=== PATIENT | male | born 1980 | race Caucasian/White ===

== ENCOUNTER 2019-10-29 13:14 | Emergency (ER) | payer SELFPAY ==
--- NOTE | 2019-10-29 13:25 | PDOC ---
Rapid Medical Evaluation Time Seen by Provider: 10/29/19 13:22 Medical Evaluation: Allergies Allergy/AdvReac Type Severity Reaction Status Date / Time No Known Allergies Allergy Verified 11/05/11 12:59 10/29/19 13:22 CC: punched a glass window not with lac to rt 5th digit, utd tdap, no diabetes Exam : noted complex lac to lat/palmar saspect of rt 5 th digit. normal 2 pt discrimination. full ext/flex tendon strength and movement Plan: xray Discharge Disposition - Diagnosis Finger laceration - Referrals - Patient Instructions - Post Discharge Activity
[2019-10-29 13:28] VITALS: BP 125/57; PULSE 88; TEMP 98.2; BMI 25.0
--- NOTE | 2019-10-29 14:21 | PDOC ---
History of Present Illness - General History Source: Patient - History of Present Illness Occurred: reports: just prior to arrival Upper Extremity Pain Location: right: 5th finger <Elaine Mao - Last Filed: 10/29/19 14:39> <Jono Messina - Last Filed: 10/29/19 14:52> - General Chief Complaint: Laceration Stated Complaint: CUT FINGER Time Seen by Provider: 10/29/19 13:22 Past History - Medical History COPD: No - Immunization History Td Vaccination: Yes Immunization Up to Date: Yes - Psycho-Social/Smoking History Smoking Status: Yes Smoking History: Never smoked Number of Cigarettes Smoked Daily: 10 - Substance Abuse Hx (Audit-C & DAST Scrn) How often the patient has a drink containing alcohol: Monthly or less Score: In Men: 4 or > Positive; In Women: 3 or > Positive: 1 Screen Result (Pos requires Nsg. Audit-10AR): Negative In the last yr the pt used illegal drug/Rx for NonMed reason: No Score: Yes response is considered Positive: 0 Screen Result (Positive result requires Nsg. DAST-10): Negative <Elaine Mao - Last Filed: 10/29/19 14:39> <Jono Messina - Last Filed: 10/29/19 14:52> - Medical History Allergies/Adverse Reactions: Allergies Allergy/AdvReac Type Severity Reaction Status Date / Time No Known Allergies Allergy Verified 10/29/19 13:26 Home Medications: Ambulatory Orders No Home Medications 0 dose .ROUTE UTDICT 11/05/11 Cephalexin [Keflex] 500 mg PO Q6H #28 capsule 10/29/19 Review of Systems - Review of Systems Constitutional: No: Fever Musculoskeletal: No: Joint Swelling Integumentary: No: Erythema <Elaine Mao - Last Filed: 10/29/19 14:39> *Physical Exam - Vital Signs Last Vital Signs Temp Pulse Resp BP Pulse Ox 98.2 F 88 18 125/57 L 98 10/29/19 13:14 10/29/19 13:14 10/29/19 13:14 10/29/19 13:14 10/29/19 13:14 - Physical Exam General Appearance: Yes: Appropriately Dressed. No: Apparent Distress HEENT: positive: Normal Voice Extremity: positive: Other (~2 cm vertical laceration alongside R 5th finger w/ sig bleeding, active and passive ROM intact, sensation intact, FROMI) Integumentary: positive: Dry, Warm Neurologic: positive: Fully Oriented, Alert, Normal Mood/Affect <Foster Mao Last Filed: 10/29/19 14:39> - Vital Signs Last Vital Signs Temp Pulse Resp BP Pulse Ox 98.2 F 88 18 125/57 L 98 10/29/19 13:14 10/29/19 13:14 10/29/19 13:14 10/29/19 13:14 10/29/19 13:14 <Jono Messina - Last Filed: 10/29/19 14:52> Procedures - Laceration/Wound Repair Right 5th digit Wound Length: 2.6 to 5.0 cm Wound Explored: clean, no foreign body present Wound's Depth, Shape: superficial, irregular Irrigated w/ Saline: Yes Betadine Prep: Yes Anesthesia: 1% Lidocaine Amount of Anesthetic (ccs): 3 Wound Debrided: minimal Wound Repaired With: Sutures Suture Size/Type: 4:0, 3:0, nylon Number of Sutures: 9 (3:0 x2 with one figure 8, 4:0 x7) Layer Closure: No Sterile Dressing Applied: No Splint Applied: Yes Sling Applied: No <Jono Messina - Last Filed: 10/29/19 14:52> Medical Decision Making - Medical Decision Making 10/29/19 13:56 39 yo M, no sig hx, tetanus UTD, here w/ finger laceration after "punching a glass" today per pt. No fb sensation or sensory changes see exam Finger laceraion No e/o tendon injury XR neg for fb (glass) Tetanus UTD Lac repair by 10/29/19 14:42 XR neg for FB. Pt s/p suture repair by ED resident w/ Dr Valle present. Splint/lucas tape was placed on pt. Per Dr Valle, given depth of wound, pt to go home w/ abx, wound check in 2 days and hand f/u <Elaine Mao Filed: 10/29/19 14:39> Discharge - Discharge Information Problems reviewed: Yes <Elaine Mao - Last Filed: 10/29/19 14:39> <Jono Messina - Last Filed: 10/29/19 14:52> - Discharge Information Clinical Impression/Diagnosis: Finger laceration Qualifiers: Encounter type: initial encounter Finger: little finger Damage to nail status: without damage Foreign body presence: without foreign body Laterality: right Qualified Code(s): S61.216A - Laceration without foreign body of right little finger without damage to nail, initial encounter Condition: Improved Disposition: HOME - Additional Discharge Information Prescriptions: Cephalexin [Keflex] 500 mg PO Q6H #28 capsule - Patient Discharge Instructions Patient Printed Discharge Instructions: DI for Laceration Repair Additional Instructions: Keep dressing in place for at least 24 hours after which one can be opened to air. You can gently cleaned wound with mild soap and water after 24 hours to prevent crusting over the suture knots. You can also apply an antibiotic ointment twice a day until sutures are removed in 7 days Return for wound check in 2 days in ED Please take antibiotics as directed Please also call orthopedics for follow up Your xray showed no foreign body
== END 2019-10-29 15:13 | disposition home or self-care (01) ==
LOC: JERFT 13:14
PROC: 0HQFXZZ Repair Right Hand Skin, External Approach (ICD-10-PCS; principal; 2019-10-29)
DX: S61.216A Laceration without foreign body of right little finger without damage to nail, initial encounter (principal)
CPT/HCPCS: 73140-TC-RT-FY; 99284-25

== ENCOUNTER 2019-12-16 11:01 | Emergency (ER) | payer OTHER ==
[2019-12-16 11:12] VITALS: BP 134/75; PULSE 97; TEMP 98.4; BMI 26.6
[2019-12-16 11:58] LABS: BASO % 0.1 % (0-2.0); EOS % 0.1 % (0-4.5); HEMATOCRIT 45.5 % (35.4-49); HEMOGLOBIN 15.4 GM/dL (11.7-16.9); LYMPH % 6.4 % (8-40); MCH 29.9 pg (25.7-33.7); MCHC 33.8 g/dl (32.0-35.9); MEAN CELL VOLUME 88.6 fl (80-96); MEAN PLT VOLUME 7.3 fl (7.5-11.1); NEUT % 83.4 % (42.8-82.8); PLATELET COUNT 313 K/MM3 (134-434); RBC 5.13 M/mm3 (4.00-5.60); RDW 12.7 % (11.9-15.9); WHITE BLOOD COUNT 17.7 K/mm3 (4.0-10.0)
[2019-12-16] MEDS ORDERED: POLYETHYLENE GLYCOL 3350 119 GM BTL PO ONE (12:03)
[2019-12-16] MEDS ORDERED: MAG HYDROX/AL HYDROX/SIMETH 30 ML UNIT-DOSE CUP PO ONE (12:03)
[2019-12-16] MEDS ORDERED: MAG HYDROX/AL HYDROX/SIMETH 30 ML UNIT-DOSE CUP ONE (12:13)
[2019-12-16] MEDS ORDERED: LACTULOSE 20 GM/30 ML UDC (FOR ORAL USE ONLY) PO ONE (12:16)
--- NOTE | 2019-12-16 12:17 | PDOC ---
History of Present Illness - General History Source: Patient Exam Limitations: Clinical Condition - History of Present Illness Initial Comments: 12/16/19 12:12 Patient with no significant past medical history present with complaint of 3-day history of constipation and intermittent lower abdominal pain which he described as cramping pain. Patient reported last bowel movement 3 days ago. Patient reported feeling nausea but denies vomiting. Denies fever, chills, shortness of breath. Patient has not taken anything for symptoms. Denies any other symptoms Is this a multiple visit Asthma Patient?: No Timing/Duration: other (3 days) <AntionetteTemo - Last Filed: 12/16/19 16:18> <Humberto Proctor - Last Filed: 12/16/19 18:55> - General Chief Complaint: Pain Stated Complaint: STOMACH PAIN (CONSTIPATION) Time Seen by Provider: 12/16/19 11:17 Past History - Medical History COPD: No - Immunization History Td Vaccination: Yes Immunization Up to Date: Yes - Psycho-Social/Smoking History Smoking Status: Yes Smoking History: Current some day smoker Have you smoked in the past 12 months: Yes Number of Cigarettes Smoked Daily: 2 Cigars Per Day: 0 Information on smoking cessation initiated: No - Substance Abuse Hx (Audit-C & DAST Scrn) How often the patient has a drink containing alcohol: Never Score: In Men: 4 or > Positive; In Women: 3 or > Positive: 0 Screen Result (Pos requires Nsg. Audit-10AR): Negative In the last yr the pt used illegal drug/Rx for NonMed reason: No Score: Yes response is considered Positive: 0 Screen Result (Positive result requires Nsg. DAST-10): Negative <Temo Adan - Last Filed: 12/16/19 16:18> <Humberto Proctor - Last Filed: 12/16/19 18:55> - Medical History Allergies/Adverse Reactions: Allergies Allergy/AdvReac Type Severity Reaction Status Date / Time No Known Allergies Allergy Verified 12/16/19 11:12 Home Medications: Ambulatory Orders Polyethylene Glycol 3350 [Miralax (For Daily Use) -] 17 gm PO DAILY #1 bottle 12/16/19 Review of Systems - Review of Systems Able to Perform ROS?: Yes Is the patient limited Kinyarwanda proficient: No Constitutional: No: Chills, Fever, Malaise HEENTM: No: Symptoms Reported, See HPI, Eye Pain, Blurred Vision, Tearing, Recent change in vision, Double Vision, Cataracts, Ear Pain, Ocular Prothesis, Ear Discharge, Nose Pain, Nose Congestion, Tinnitus, Nose Bleeding, Hearing Loss, Throat Pain, Throat Swelling, Mouth Pain, Dental Problems, Difficulty Swallowing, Mouth Swelling, Other Respiratory: No: Symptoms reported, See HPI, Cough, Orthopnea, Shortness of Breath, SOB with Exertion, SOB at Rest, Stridor, Wheezing, Productive cough, Hemoptysis, Other Cardiac (ROS): No: Symptoms Reported, See HPI, Chest Pain, Edema, Irregular Heart Rate, Lightheadedness, Palpitations, Syncope, Chest Tightness, Other ABD/GI: Yes: Symptoms Reported, See HPI, Constipated, Nausea, Abdominal cramping (lower abdomen). No: Abdominal Distended, Abd. Pain w/ defecation, Blood Streaked Bowels, Diarrhea, Difficulty Swallowing, Poor Appetite, Rectal Bleeding, Vomiting, Indigestion : No: Symptoms Reported, Burning, Dysuria, Discharge, Frequency, Flank Pain, Urgency Integumentary: No: Symptoms Reported Neurological: No: Symptoms reported, Headache All Other Systems: Reviewed and Negative <Temo Adan - Last Filed: 12/16/19 16:18> *Physical Exam - Vital Signs Last Vital Signs Temp Pulse Resp BP Pulse Ox 98.4 F 97 H 18 134/75 100 12/16/19 11:09 12/16/19 11:09 12/16/19 11:09 12/16/19 11:09 12/16/19 11:09 - Physical Exam 12/16/19 12:16 GENERAL: Well developed, well nourished. Awake and alert. No acute distress. HEENT: Normocephalic, atraumatic. PERRLA, EOMI. No conjunctival pallor. Sclera are non-icteric. Moist mucous membranes. Oropharynx is clear. NECK: Supple. Full ROM. CARDIOVASCULAR: Regular rate and rhythm. No murmurs, rubs, or gallops. PULMONARY: No evidence of respiratory distress. Lungs clear to auscultation bilaterally. No wheezing, rales or rhonchi. ABDOMINAL: Soft. Mild suprapubic tenderness. Non-distended. No rebound or guarding. No organomegaly. Diffuse decreased bowel sounds. MUSCULOSKELETAL Normal range of motion at all joints. SKIN: Warm and dry. Normal capillary refill. No rashes. No jaundice. NEUROLOGICAL: Alert, awake, appropriate. Gait is normal without ataxia. PSYCHIATRIC: Cooperative. Good eye contact. Appropriate mood General Appearance: Yes: Nourished, Appropriately Dressed. No: Apparent Distress <Temo Adan - Last Filed: 12/16/19 16:18> - Vital Signs Last Vital Signs Temp Pulse Resp BP Pulse Ox 98.4 F 97 H 18 134/75 100 12/16/19 11:09 12/16/19 11:09 12/16/19 11:09 12/16/19 11:09 12/16/19 11:09 <Esthela,Humberto - Last Filed: 12/16/19 18:55> ED Treatment Course - LABORATORY CBC & Chemistry Diagram: 12/16/19 11:30 12/16/19 11:36 - ADDITIONAL ORDERS Additional order review: 12/16/19 11:30 RBC 5.13 MCV 88.6 MCHC 33.8 RDW 12.7 MPV 7.3 L Neutrophils % 83.4 H Lymphocytes % 6.4 L Monocytes % 10.0 Eosinophils % 0.1 Basophils % 0.1 - RADIOLOGY Radiology Studies Ordered: Category Date Time Status ABDOMEN FLAT & UPRIGHT [RAD] Stat Radiology 12/16/19 11:34 Ordered <Temo Adan - Last Filed: 12/16/19 16:18> - LABORATORY CBC & Chemistry Diagram: 12/16/19 11:30 12/16/19 11:36 - ADDITIONAL ORDERS Additional order review: Laboratory Results 12/16/19 12/16/19 11:36 11:35 Sodium 135 L Potassium 3.9 Chloride 99 Carbon Dioxide 26 Anion Gap 10 BUN 12.7 Creatinine 0.8 Est GFR (CKD-EPI)AfAm 131.34 Est GFR (CKD-EPI)NonAf 113.32 Random Glucose 96 Calcium 9.3 Total Bilirubin 1.0 AST 34 ALT 80 H Alkaline Phosphatase 115 Total Protein 7.7 Albumin 3.6 Triglycerides 87 Cholesterol 132 Total LDL Cholesterol 87 HDL Cholesterol 25 L Urine Color Dk yellow Urine Appearance Clear Urine pH 5.5 Ur Specific [place] 1.032 Urine Protein 3+ H Urine Glucose (UA) Negative Urine Ketones 3+ H Urine Blood 3+ H Urine Nitrite Negative Urine Bilirubin 2+ H Urine Urobilinogen 1.0 Ur Leukocyte Esterase Negative Urine WBC (Auto) 19 Urine RBC (Auto) 43 Urine Casts (Auto) 23 U Pathogenic Cast Auto Non seen U Epithel Cells (Auto) 29 U Sm Round Cell (Auto) Present Urine Bacteria (Auto) 17 12/16/19 11:30 RBC 5.13 MCV 88.6 MCHC 33.8 RDW 12.7 MPV 7.3 L Neutrophils % 83.4 H Lymphocytes % 6.4 L Monocytes % 10.0 Eosinophils % 0.1 Basophils % 0.1 - Medications Given in the ED: ED Medications Discontinued Medications Generic Name Dose Route Start Last Admin Trade Name Freq PRN Reason Stop Dose Admin Al Hydroxide/Mg Hydroxide 30 ml 12/16/19 12:03 12/16/19 12:17 Mylanta Oral Suspension - PO 12/16/19 12:04 30 ml ONCE ONE Administration Lactulose 20 gm 12/16/19 12:16 12/16/19 12:52 Cephulac (Oral Use) PO 12/16/19 12:17 20 gm ONCE ONE Administration Polyethylene Glycol 17 gm 12/16/19 12:03 12/16/19 12:17 Miralax (For Daily Use) - PO 12/16/19 12:04 17 mg ONCE ONE Administration <Humberto Proctor - Last Filed: 12/16/19 18:55> Medical Decision Making - Medical Decision Making 12/16/19 12:14 Patient with no significant past medical history present with complaint of 3-day history of constipation and intermittent lower abdominal pain which he described as cramping pain. Patient reported last bowel movement 3 days ago. Patient reported feeling nausea but denies vomiting. Denies fever, chills, shortness of breath. Patient has not taken anything for symptoms. Denies any other symptoms Exam significant for mild lower abdominal tenderness over suprapubic area without guarding or rebound with diffuse decreased bowel sounds. Patient in no acute distress. Patient afebrile. Normal cardio and lung exam. Patient symptoms likely constipation versus less likely gastroenteritis or colitis. CBC, CMP and lipase lab ordered. Abdominal x-ray ordered to rule out obstruc tion. MiraLAX 17 g p.o. and Maalox 30 mL p.o. to be given if no abdominal obstruction. Treat based on lab result 12/16/19 14:59 CBC shows elevated WBC of 17. Patient boarded for abdominal CT but patient could not be located anywhere. I have been looking for the patient for the past over half an hour without success. Called patient phone 5 times with no answer. steel die press set up operator outside indicate saw patient walk out with patient clothes covering the right arm with patient have the IV. Call made to [place] [employer] by patient's nurse to follow up with patient 12/16/19 15:39 Patient just returned and reported he went home and he had 3 bowel movements when he went home and now feeling better. Patient is alert and oriented x3 and not hypersomnolence. Patient advised that [place] [facility] was called and IV was removed from patient's arm and patient stable for discharge on MiraLAX PRN for abdominal pain with GI follow-up and strict follow-up instructions. Patient reported he cannot have CAT scan done at this point as he already left the department and he will need to recheck him in. Patient reported he will take the MiraLAX and follow-up with GI and will come back if worsening symptoms <Temo Adan - Last Filed: 12/16/19 16:18> - Medical Decision Making 12/16/19 18:54 The patient was seen and evaluated in conjunction with JOJO Adan under my direct supervision, ancillary studies were reviewed. I agree with the plan as outli rui by JOJO Adan. <Humberto Proctor - Last Filed: 12/16/19 18:55> Discharge - Discharge Information Problems reviewed: Yes - Admission No <Temo Adan - Last Filed: 12/16/19 16:18> <Humberto Proctor - Last Filed: 12/16/19 18:55> - Discharge Information Clinical Impression/Diagnosis: Abdominal pain in male Condition: Stable Disposition: HOME - Additional Discharge Information Prescriptions: Polyethylene Glycol 3350 [Miralax (For Daily Use) -] 17 gm PO DAILY #1 bottle - Follow up/Referral Referrals: Akash Reese MD [Primary Care Provider] - Julio Umanzor DO [Staff Physician] - - Patient Discharge Instructions Patient Printed Discharge Instructions: Increased Dietary Fiber May Improve Constipation Conditions With Pelvic Christiano, DI for Constipation Additional Instructions: Take prescribed medication as prescribed for constipation. Follow-up referred to GI doctor. You can come back to the emergency room if worsening abdominal pain abdominal CAT scan - Post Discharge Activity
[2019-12-16 12:29] LABS: ALBUMIN 3.6 g/dl (3.4-5.0); BLOOD UREA NITROGEN 12.7 mg/dL (7-18); CALCIUM 9.3 mg/dL (8.5-10.1); CREATININE 0.8 mg/dL (0.55-1.3); POTASSIUM 3.9 mmol/L (3.5-5.1); TOT PROT 7.7 g/dl (6.4-8.2)
[2019-12-16 12:38] LABS: EPI CELLS 29 /uL (0-25.1); HYALINE CASTS 23 /uL (0-3.1); PH,URINE 5.5 (5.0-8.0); URINE APPEARANCE CLEAR; URINE BACTERIA 17 /uL (0-1359); URINE BILIRUBIN 2+ (NEGATIVE); URINE COLOR DK YELLOW; URINE GLUCOSE (UA) NEGATIVE (NEGATIVE); URINE KETONE 3+ (NEGATIVE); URINE LEUK ESTERASE NEGATIVE (NEGATIVE); URINE NITRITE NEGATIVE (NEGATIVE); URINE PROTEIN 3+ (NEGATIVE); URINE RBC 43 /uL (0-23.9); URINE WBC 19 /uL (0-25.8)
[2019-12-16] MEDS ORDERED: LACTULOSE 20 GM/30 ML UDC (FOR ORAL USE ONLY) ONE (12:38)
== END 2019-12-16 15:45 | disposition home or self-care (01) ==
LOC: JER 11:01
DX: R10.9 Unspecified abdominal pain (principal)
CPT/HCPCS: 36415; 74019-TC-FY; 80053; 80061; 81003; 83721; 85025; 87086; 99285-25

== ENCOUNTER 2019-12-17 01:07 | Inpatient (IN) | payer OTHER ==
[2019-12-17 03:00] VITALS: BMI 25.8
--- NOTE | 2019-12-17 03:40 | PDOC ---
History of Present Illness - General Chief Complaint: Pain, Acute Stated Complaint: ABDOMINAL PAIN Time Seen by Provider: 12/17/19 03:40 History Source: Patient Exam Limitations: No Limitations - History of Present Illness Initial Comments: 39M with no significant PMH or history of abdominal surgery presents to ED with lower abdominal pain. He presented to the ED yesterday with same complaint, and reported no BM in 3 days. He had abdominal CT scheduled but eloped prior to sca n. The patient reports using miralax at home with 5-6 BM's yesterday without improvement. Lower abdominal pain described as intermittent and crampy. Reports n/v, but no current nausea. Denies diarrhea, hematochezia, hematuria, dysuria, penis discharge, testicular pain or swelling. PMH: as in HPI SH: none Meds: none Allergies: NKDA Tob/Etoh/Rec drugs: occasional smoking, alcohol socially, and cannabis ROS GENERAL/CONSTITUTIONAL: No fever or chills. No weakness. HEENT: No change in vision. No ear pain or discharge. No sore throat. CARDIOVASCULAR: No chest pain or shortness of breath RESPIRATORY: No cough, wheezing, or hemoptysis. GASTROINTESTINAL: +nausea, vomiting; no diarrhea or constipation. GENITOURINARY: No dysuria, frequency, or change in urination. MUSCULOSKELETAL: No joint or muscle swelling or pain. No neck or back pain. SKIN: No rash NEUROLOGIC: No headache, vertigo, loss of consciousness, or change in strength/sensation. ENDOCRINE: No increased thirst. No abnormal weight change HEMATOLOGIC/LYMPHATIC: No anemia, easy bleeding, or history of blood clots. ALLERGIC/IMMUNOLOGIC: No hives or skin allergy. PE GENERAL: Awake, alert, and fully oriented, in no acute distress HEAD: No signs of trauma, normocephalic, atraumatic EYES: PERRLA, EOMI, sclera anicteric, conjunctiva clear ENT: Auricles normal inspection, hearing grossly normal, nares patent, oropharynx clear without exudates. Moist mucosa NECK: Normal ROM, supple, no LAD, JVD, or masses HEART: Regular rate and rhythm, normal S1 and S2, no murmurs, rubs or gallops, peripheral pulses normal and equal bilaterally. LUNGS: No distress, speaks full sentences, clear to auscultation bilaterally ABDOMEN: Soft, mild tenderness to palpation. No guarding, no rebound. Normoactive bowel sounds. No masses EXTREMITIES: Normal inspection, Normal range of motion, no edema. No clubbing or cyanosis. NEUROLOGICAL: Normal speech, normal gait, no focal sensorimotor deficits SKIN: Warm, Dry, normal turgor, no rashes or lesions noted Assessment and Plan 1. constipation 2. nephrolithiasis 3. SBO unlikely 4. gastritis 5. diverticulitis 6. colitis Arthur Mcdonald, PGY1 Emergency Medicine Past History - Medical History Allergies/Adverse Reactions: Allergies Allergy/AdvReac Type Severity Reaction Status Date / Time No Known Allergies Allergy Verified 12/17/19 02:08 Home Medications: Ambulatory Orders Polyethylene Glycol 3350 [Miralax (For Daily Use) -] 17 gm PO DAILY #1 bottle 12/16/19 COPD: No - Immunization History Td Vaccination: Yes Immunization Up to Date: Yes - Psycho-Social/Smoking History Smoking Status: Yes Smoking History: Never smoked Have you smoked in the past 12 months: No Number of Cigarettes Smoked Daily: 2 Cigars Per Day: 0 Information on smoking cessation initiated: No - Substance Abuse Hx (Audit-C & DAST Scrn) How often the patient has a drink containing alcohol: Never Score: In Men: 4 or > Positive; In Women: 3 or > Positive: 0 Screen Result (Pos requires Nsg. Audit-10AR): Negative In the last yr the pt used illegal drug/Rx for NonMed reason: No Score: Yes response is considered Positive: 0 Screen Result (Positive result requires Nsg. DAST-10): Negative *Physical Exam - Vital Signs Last Vital Signs Temp Pulse Resp BP Pulse Ox 99.8 F H 102 H 20 131/70 96 12/17/19 01:52 12/17/19 01:52 12/17/19 01:52 12/17/19 01:52 12/17/19 01:52 ED Treatment Course - LABORATORY CBC & Chemistry Diagram: 12/17/19 04:40 12/17/19 04:40 Medical Decision Making - Medical Decision Making 39M without PMH presents for lower abdominal pain. Afebrile, but tachycardia. -Labwork remarkable for: -WBC 18.5 -CMP WNL -CT abdomen/pelvis demonstrated sigmoid inflammation with 5.5 x 4.8 x 3.8cm pericolic rim-enhancing complex fluid collection, likely abscess per radiology. -Pt started on 1L NS, IV zosyn. Given 1g IV tylenol for pain control. -Patient admitted to m/s. -Dr. Prabhakar with gen surg and Dr. Chacko with IR will see patient today. Discharge - Discharge Information Problems reviewed: Yes Clinical Impression/Diagnosis: Abscess of sigmoid colon Condition: Stable - Admission Yes - Follow up/Referral - Patient Discharge Instructions - Post Discharge Activity
[2019-12-17 04:49] LABS: BASO % 0.1 % (0-2.0); EOS % 0.1 % (0-4.5); HEMATOCRIT 42.9 % (35.4-49); HEMOGLOBIN 14.5 GM/dL (11.7-16.9); LYMPH % 7.1 % (8-40); MCH 30.1 pg (25.7-33.7); MCHC 33.8 g/dl (32.0-35.9); MEAN CELL VOLUME 89.2 fl (80-96); NEUT % 81.7 % (42.8-82.8); PLATELET COUNT 286 K/MM3 (134-434); RBC 4.81 M/mm3 (4.00-5.60); RDW 12.9 % (11.9-15.9); WHITE BLOOD COUNT 18.5 K/mm3 (4.0-10.0)
[2019-12-17 05:06] LABS: ALBUMIN 3.3 g/dl (3.4-5.0); BILIRUBIN,TOTAL 0.5 mg/dL (0.2-1); BLOOD UREA NITROGEN 10.3 mg/dL (7-18); CALCIUM 8.8 mg/dL (8.5-10.1); CREATININE 0.8 mg/dL (0.55-1.3); POTASSIUM 3.8 mmol/L (3.5-5.1); TOT PROT 7.3 g/dl (6.4-8.2)
--- NOTE | 2019-12-17 05:09 | PDOC ---
Attending Attestation - Resident Resident Name: Arthur Mcdonald - ED Attending Attestation I have performed the following: I have examined & evaluated the patient, The case was reviewed & discussed with the resident, I agree w/resident's findings & plan, Exceptions are as noted - HPI HPI: 12/17/19 07:40 See resident HPI - Physicial Exam PE: 12/17/19 07:40 Agree with documented exam - Medical Decision Making 12/17/19 07:40 Eloped yesterday with same presentation before any labs resulted or imaging performed Tachy but afebrile repeat labs f/u ct ap wbc 18, up from yesterday CT shows sandra-sigmoid abscess IVF, Zosyn IR consult, admit IR to see today, gen surg also aware Admit to m/s Discharge - Discharge Information Problems reviewed: Yes Clinical Impression/Diagnosis: Abscess of sigmoid colon Condition: Stable - Follow up/Referral - Patient Discharge Instructions - Post Discharge Activity
[2019-12-17] MEDS ORDERED: SODIUM CHLORIDE 0.9% 500 ML INFUS.BAG IV ONE (06:35)
[2019-12-17] MEDS ORDERED: PIPERACILLIN/TAZOB 4.5 GM 4.5 GM in DEXTROSE 5%-WATER 100 ML IVPB ONE (06:56)
[2019-12-17] MEDS ORDERED: PIPERACILLIN/TAZOB 4.5 GM 4.5 GM/100 ML BAG IVPB ONE (06:58)
[2019-12-17] MEDS ORDERED: ONDANSETRON 4 MG/2 ML VIAL IVPUSH PRN (07:00)
[2019-12-17] MEDS ORDERED: ACETAMINOPHEN 1000 MG/100 ML VIAL (NON FORMULARY) IVPB ONE (07:13)
[2019-12-17] MEDS ORDERED: ACETAMINOPHEN INJECTION 100 ML IVPB ONE (07:14)
[2019-12-17] MEDS ORDERED: ACETAMINOPHEN 1000 MG/100 ML VIAL (NON FORMULARY) IVPB PRN (07:30)
--- NOTE | 2019-12-17 07:56 | HP ---
CHIEF COMPLAINT: abdominal pain PCP:none HISTORY OF PRESENT ILLNESS: 39 yo male with no significant pmh presents to the ED with complaints of a three day history of abdominal pain- patient states the pain started out of the blue three days ago all along the lower portion of his abdomen he states that its sharp and is constant and at its worst is a 9/10- he has not tried taking anything for the pain; before yesterday he had not had any bowel movements and was also having nausea/vomiting he initially came to the ED yesterday but eloped before the CT scan could be done he was also given miralax while he was here; he went home had around 4-5 bowel movements and the pain became very severe so he came back. he denies any fevers/chills/CP or SOB ER course was notable for: (1)HR 85 (2)wbc 18.5 NA 134 ALT 80 Cr 0.8 (3)ab/Pelvis CT: 5.5.x 4.8 x 3.8 cm pericolic ring-enhancing fluid complex likely an abscess (4) received zosyn/IVF/tylenol Recent Travel: denies PAST MEDICAL HISTORY: none PAST SURGICAL HISTORY: right shoulder replacement Social History: Smoking:denies Alcohol:denies Drugs: denies Allergies No Known Allergies Allergy (Verified 12/17/19 02:08) HOME MEDICATIONS: Home Medications Medication Instructions Recorded Polyethylene Glycol 3350 [Miralax 17 gm PO DAILY #1 bottle 12/16/19 (For Daily Use) -] REVIEW OF SYSTEMS CONSTITUTIONAL: Absent: fever, chills, diaphoresis, generalized weakness, malaise, loss of appetite, weight change HEENT: Absent: rhinorrhea, nasal congestion, throat pain, throat swelling, difficulty swallowing, mouth swelling, ear pain, eye pain, visual changes CARDIOVASCULAR: Absent: chest pain, syncope, palpitations, irregular heart rate, lightheadedness, peripheral edema RESPIRATORY: Absent: cough, shortness of breath, dyspnea with exertion, orthopnea, wheezing, stridor, hemoptysis GASTROINTESTINAL: Present: abdominal pain Absent: abdominal distension, nausea, vomiting, diarrhea, constipation, melena, hematochezia GENITOURINARY: Absent: dysuria, frequency, urgency, hesitancy, hematuria, flank pain, genital pain MUSCULOSKELETAL: Absent: myalgia, arthralgia, joint swelling, back pain, neck pain SKIN: Absent: rash, itching, pallor HEMATOLOGIC/IMMUNOLOGIC: Absent: easy bleeding, easy bruising, lymphadenopathy, frequent infections ENDOCRINE: Absent: unexplained weight gain, unexplained weight loss, heat intolerance, cold intolerance NEUROLOGIC: Absent: headache, focal weakness or paresthesias, dizziness, unsteady gait, se izure, mental status changes, bladder or bowel incontinence PSYCHIATRIC: Absent: anxiety, depression, suicidal or homicidal ideation, hallucinations. PHYSICAL EXAMINATION Vital Signs - 24 hr 12/17/19 12/17/19 01:52 06:22 Temperature 99.8 F H 98.3 F Pulse Rate 102 H Pulse Rate [ 85 Right Radial] Respiratory 20 18 Rate Blood Pressure 131/70 Blood Pressure 132/72 [Right Arm] O2 Sat by Pulse 96 97 Oximetry (%) GENERAL: Awake, alert, and fully oriented, in no acute distress. EYES:PEERLA; EOMI; no scleral icterus NECK: no JVD; no lymphadenopathy LUNGS:CTA B/L no rales, rhonchi or wheezing HEART: RRR, normal S1 and S2 without murmur, rub or gallop. ABDOMEN: Soft, slight tenderness upon palpation mainly in LLQ, no rebound or guarding +BS MUSCULOSKELETAL: Normal range of motion at all joints. No bony deformities or tenderness. No CVA tenderness. EXTREMITIES: warm; well-perfused no clubbing/cyanosis or edema NEUROLOGICAL: Cranial nerves II-XII intact. Normal speech. Normal gait. PSYCHIATRIC: Cooperative. Good eye contact. Appropriate mood and affect. SKIN: Warm, dry, normal turgor, no rashes or lesions noted, normal capillary refill. Laboratory Results - last 24 hr 12/17/19 12/17/19 04:40 04:40 WBC 18.5 H RBC 4.81 Hgb 14.5 Hct 42.9 MCV 89.2 MCH 30.1 MCHC 33.8 RDW 12.9 Plt Count 286 MPV 7.0 L Absolute Neuts (auto) 15.1 H Neutrophils % 81.7 Lymphocytes % 7.1 L Monocytes % 11.0 H Eosinophils % 0.1 Basophils % 0.1 Nucleated RBC % 0 Sodium 134 L Potassium 3.8 Chloride 98 Carbon Dioxide 25 Anion Gap 10 BUN 10.3 Creatinine 0.8 Est GFR (CKD-EPI)AfAm 131.34 Est GFR (CKD-EPI)NonAf 113.32 Random Glucose 108 H Calcium 8.8 Total Bilirubin 0.5 AST 36 ALT 80 H Alkaline Phosphatase 110 Total Protein 7.3 Albumin 3.3 L ASSESSMENT/PLAN: 39 yo male with no significant pmh presents to the ED with complaints of a three day history of abdominal pain found to have a pericolic abscess #Pericolic Abscess CT scan shows 5.5.x 4.8 x 3.8 cm pericolic ring-enhancing fluid complex likely an abscess -abscess will liekly need drainage -IR and general surgery both consulted -c/w zosyn -ID consulted -NPO -IVF -zofran PRN nausea -tylenol PRN for pain -GI consult f/e/n NS #@75 monitor electrolytes NPO in case of procedure dvt ppx: scds Family Medical History Family History: Denies Problem List - Problem (1) Abscess of sigmoid colon Code(s): K63.0 - ABSCESS OF INTESTINE Visit type - Emergency Visit Emergency Visit: Yes ED Registration Date: 12/17/19 Care time: The patient presented to the Emergency Department on the above date and was hospitalized for further evaluation of their emergent condition. - New Patient This patient is new to me today: Yes Date on this admission: 12/17/19 - Critical Care Critical Care patient: No ATTENDING PHYSICIAN STATEMENT I saw and evaluated the patient. I reviewed the resident's note and discussed the case with the resident. I agree with the resident's findings and plan as documented. SUBJECTIVE: OBJECTIVE: ASSESSMENT AND PLAN:
[2019-12-17] MEDS: SODIUM CHLORIDE 1,000 ML IV SCH ×2 (08:01→21:16)
[2019-12-17 08:14] LABS: URINE COLOR YELLOW
[2019-12-17 08:15] LABS: URINE APPEARANCE CLEAR; URINE BILIRUBIN NEGATIVE (NEGATIVE); URINE GLUCOSE (UA) NEGATIVE (NEGATIVE); URINE KETONE 40 mg/dl (NEGATIVE); URINE PROTEIN 1+ (NEGATIVE)
[2019-12-17 08:16] LABS: EPI CELLS 10.2 /uL (0-25.1); HYALINE CASTS 2.87 /uL (0-3.1); URINE BACTERIA 12.4 /uL (0-1359); URINE LEUK ESTERASE TRACE (NEGATIVE); URINE NITRITE NEGATINE (NEGATIVE); URINE RBC 192.1 /uL (0-23.9); URINE WBC 10.6 /uL (0-25.8)
--- NOTE | 2019-12-17 10:30 | CON.ID ---
Consult Consult Specialty:: infectious diseases Referred by:: Reason for Consultation:: abd pain,diverticulitis - History of Present Illness Chief Complaint: abd pain History of Present Illness: 39 yo male with no significant pmh admitted with complaints of a three day history of abdominal pain- patient states the pain started out of the blue three days ago all along the lower portion of his abdomen mainly on the left lower quadrant he states that its sharp and is constant and at its worst is a 9/10- he has not tried taking anything for the pain; before yesterday he had not had any bowel movements and was also having nausea/vomiting he initially came to the ED yesterday but eloped before the CT scan could be done he was also given miralax while he was here; he went home had around 4-5 bowel movements and the pain became very severe so he came back. he denies any fevers/chills/CP or SOB currently pin main issue - History Source History Provided By: Patient Limitations to Obtaining History: No Limitations - Smoking History Smoking history: Never smoked Have you smoked in the past 12 months: No Aproximately how many cigarettes per day: 2 Home Medications - Allergies Allergies/Adverse Reactions: Allergies Allergy/AdvReac Type Severity Reaction Status Date / Time No Known Allergies Allergy Verified 12/17/19 02:08 - Home Medications Home Medications: Ambulatory Orders Polyethylene Glycol 3350 [Miralax (For Daily Use) -] 17 gm PO DAILY #1 bottle 12/16/19 Review of Systems - Review of Systems Constitutional: reports: No Symptoms Eyes: reports: No Symptoms HENT: reports: No Symptoms Neck: reports: No Symptoms Cardiovascular: reports: No Symptoms Respiratory: reports: No Symptoms Gastrointestinal: reports: Abdominal Pain Musculoskeletal: reports: No Symptoms Integumentary: reports: No Symptoms Neurological: reports: No Symptoms Endocrine: reports: No Symptoms Hematology/Lymphatic: reports: No Symptoms Psychiatric: reports: No Symptoms Physical Exam Vital Signs: Vital Signs Temperature 98 F 12/17/19 09:37 Pulse Rate 72 12/17/19 09:43 Respiratory Rate 16 12/17/19 09:43 Blood Pressure 114/72 12/17/19 09:43 O2 Sat by Pulse Oximetry (%) 98 12/17/19 09:43 Constitutional: Yes: Calm, Mild Distress Eyes: Yes: Conjunctiva Clear HENT: Yes: Atraumatic, Normocephalic Neck: Yes: Supple, Trachea Midline Cardiovascular: Yes: Regular Rate and Rhythm Respiratory: Yes: Regular, CTA Bilaterally Gastrointestinal: Yes: Hypoactive Bowel Sounds, Tenderness (lower abd) Musculoskeletal: Yes: WNL Extremities: Yes: WNL Neurological: Yes: Alert, Oriented Psychiatric: Yes: Alert, Oriented Labs: CBC, BMP 12/17/19 04:40 12/17/19 04:40 Imaging - Results Cat Scan: Report Reviewed, Image Reviewed Assessment/Plan relatively healthy patient coming in with ac diverticulitis this his is first episode i am going to give zosyn monitor wbc rest as per team
--- NOTE | 2019-12-17 10:54 | CONSULT ---
- Consultation REQUESTING PROVIDER: Leona ESCALONA CONSULT REQUEST: We have been asked to surgically evaluate this patient for abdominal pain. PCP:Tolu Denney MD HISTORY OF PRESENT ILLNESS: EDIN who is a 39 y/o male who presented to the [facility] ED for the second time in 2 days w/the sudden onset of sharp lower and LLQ abdominal pain; he has NOC e/f ? constipation of late. He states his pain has improved since admission. PMHx: none e/f ?? EtoH abuse PSHx: none Home Medications Medication Instructions Recorded Polyethylene Glycol 3350 [Miralax 17 gm PO DAILY #1 bottle 12/16/19 (For Daily Use) -] Allergies Allergy/AdvReac Type Severity Reaction Status Date / Time No Known Allergies Allergy Verified 12/17/19 02:08 REVIEW OF SYSTEMS: CONSTITUTIONAL: Absent: fever, chills, diaphoresis, generalized weakness, malaise, loss of appetite, weight change CARDIOVASCULAR: Absent: chest pain, syncope, palpitations, irregular heart rate, lightheadedness, peripheral edema RESPIRATORY: Absent: cough, shortness of breath, dyspnea with exertion, wheezing, stridor, hemoptysis GASTROINTESTINAL: Absent: abdominal pain, abdominal distension, nausea, vomiting, diarrhea, Present:constipation Absent: melena, hematochezia GENITOURINARY: Absent: dysuria, frequency, urgency, hesitancy, hematuria, flank pain, genital pain MUSCULOSKELETAL: Absent: myalgia, arthralgia, joint swelling, back pain, neck pain SKIN: Absent: rash, itching, pallor HEMATOLOGIC/IMMUNOLOGIC: Absent: easy bleeding, easy bruising, lymphadenopathy NEUROLOGIC: Absent: headache, focal weakness, paresthesias, dizziness, unsteady gait, seizure, mental status changes, bladder or bowel incontinence PSYCHIATRIC: Absent: anxiety, depression, suicidal or homicidal ideation, hallucinations. PHYSICAL EXAM: GENERAL: Awake, alert, and fully oriented, in no acute distress. HEAD: Normal with no signs of trauma. EYES: PERRL, sclera anicteric, conjunctiva clear. NECK: Normal ROM, supple without lymphadenopathy, JVD, or masses. ABDOMEN: Soft, nontender, not distended, normoactive bowel sounds, no guarding, no rebound, no masses. No organomegaly. No hernias; no scars. MUSCULOSKELETAL: Normal ROM at all joints. No bony deformities or tenderness. No CVA tenderness. UPPER EXTREMITIES: 2+ pulses, warm, well-perfused. No cyanosis. Cap refill <2 seconds. No peripheral edema. LOWER EXTREMITIES: 2+ pulses, warm, well-perfused. No calf tenderness. No peripheral edema. NEUROLOGICAL: Normal speech, gait not observed. PSYCH: Cooperative. Good eye contact. Appropriate mood and affect. SKIN: Warm, dry, normal turgor, no rashes or lesions noted. Vital Signs Temperature 98 F 12/17/19 09:37 Pulse Rate 72 12/17/19 09:43 Respiratory Rate 16 12/17/19 09:43 Blood Pressure 114/72 12/17/19 09:43 O2 Sat by Pulse Oximetry (%) 98 12/17/19 09:43 Lab Results WBC 18.5 K/mm3 (4.0-10.0) H 12/17/19 04:40 RBC 4.81 M/mm3 (4.00-5.60) 12/17/19 04:40 Hgb 14.5 GM/dL (11.7-16.9) 12/17/19 04:40 Hct 42.9 % (35.4-49) 12/17/19 04:40 MCV 89.2 fl (80-96) 12/17/19 04:40 MCHC 33.8 g/dl (32.0-35.9) 12/17/19 04:40 RDW 12.9 % (11.9-15.9) 12/17/19 04:40 Plt Count 286 K/MM3 (134-434) 12/17/19 04:40 Sodium 134 mmol/L (136-145) L 12/17/19 04:40 Potassium 3.8 mmol/L (3.5-5.1) 12/17/19 04:40 Chloride 98 mmol/L (98-107) 12/17/19 04:40 Carbon Dioxide 25 mmol/L (21-32) 12/17/19 04:40 Anion Gap 10 MMOL/L (8-16) 12/17/19 04:40 BUN 10.3 mg/dL (7-18) 12/17/19 04:40 Creatinine 0.8 mg/dL (0.55-1.3) 12/17/19 04:40 Random Glucose 108 mg/dL (74-106) H 12/17/19 04:40 Calcium 8.8 mg/dL (8.5-10.1) 12/17/19 04:40 CT scan a/p reviewed and c/w intra abdominal abscess and possible sigmoid diverticulitis. IMP: diverticulitis w/abscess PLAN: NPO/IVF/IVAB's/evaluation for IRD of intraabdominal abscess and ID Consultation. Ernesto Prabhakar MD FACS
[2019-12-17 11:36] LABS: INR 1.23 (0.83-1.09); PROTHROMBIN TIME (PATIENT) 14.6 SEC (9.7-13.0)
[2019-12-17 11:38] LABS: ACTIVATED PTT 29.8 SECONDS (25.2-36.5)
[2019-12-17] MEDS ORDERED: PIPERACILLIN/TAZOB 3.375 GM 3.375 GM in DEXTROSE 5%-WATER - 50 ML IVPB SCH ×2 (12:00→14:00)
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
--- NOTE | 2019-12-17 13:51 | PN ---
Teaching Attending Note Name of Resident: Marisela Delgadillo ATTENDING PHYSICIAN STATEMENT I saw and evaluated the patient. I reviewed the resident's note and discussed the case with the resident. I agree with the resident's findings and plan as documented. SUBJECTIVE: pt seen and examined OBJECTIVE: Last Vital Signs Temp Pulse Resp BP Pulse Ox 98 F 72 16 114/72 98 12/17/19 09:37 12/17/19 09:43 12/17/19 09:43 12/17/19 09:43 12/17/19 09:43 GENERAL: Awake, alert, and fully oriented, in no acute distress. HEAD: Normal with no signs of trauma. EYES: Pupils equal, round and reactive to light, sclera anicteric, conjunctiva clear. LUNGS: Breath sounds equal, clear to auscultation bilaterally. No wheezes, and no crackles. No accessory muscle use. HEART: Regular rate and rhythm, normal S1 and S2 ABDOMEN: Soft, mild guarding, minimal tenderness, not distended, BS+ MUSCULOSKELETAL: Normal range of motion at all joints. No bony deformities or tenderness. No CVA tenderness. UPPER EXTREMITIES: 2+ pulses, warm, well-perfused. No cyanosis. No clubbing. No peripheral edema. LOWER EXTREMITIES: 2+ pulses, warm, well-perfused. No calf tenderness. No peripheral edema. NEUROLOGICAL: Cranial nerves II-XII intact. Normal speech. ASSESSMENT AND PLAN: 39 yo man with Mhx of marijuana use presents to the ED with complaints of a three day history of abdominal pain found to have a pericolic abscess. He denies any wt loss, change in bowel habits (daily BM), no previous episodes, no family hx of cancers. He states that he exercises and take AA supplements but no hormonal supplements. Uses vapes with h/o marijuana. #Pericolic Abscess with sepsis etiology undetermined: IBS vs diverticulitis vs infectious colitis vs malignancy CT scan shows 5.5.x 4.8 x 3.8 cm pericolic ring-enhancing fluid complex likely an abscess IR and general surgery both consulted has leukocytosis, tachycardia, mild fever. Meets sepsis criteria c/w zosyn ID consulted NPO, IVF, antiemetics obtain blood cultures, stool cultures pt reporting improvement of pain. GI consult Mild elevation of LFT DVT prophylaxis
--- NOTE | 2019-12-17 15:01 | PN ---
Progress Note (short form) - Note Progress Note: Attending Surgeon Case d/w Dr. Gely Burns who feels b/o technical reasons this intraabdominal collection is not amenable to IRD; will tx. w/IVABS and rescan next week and/or if decompensates possible Maldonado s procedure. Ernesto Prabhakar MD FACS
[2019-12-17] MEDS ORDERED: PIPERACILLIN/TAZOBACTAM 3.375 GM VIAL IVPB ONE (17:57)
[2019-12-17] MEDS ORDERED: DEXTROSE 5%-WATER - 50 ML IVPB ONE (17:57)
[2019-12-17] MEDS: PIPERACILLIN/TAZOB 3.375 GM 3.375 GM in DEXTROSE 5%-WATER - 50 ML IVPB SCH (18:28)
[2019-12-18] MEDS ORDERED: PIPERACILLIN/TAZOBACTAM 3.375 GM VIAL IVPB ONE ×3 (01:30→17:22)
[2019-12-18] MEDS ORDERED: DEXTROSE 5%-WATER - 50 ML IVPB ONE ×3 (01:31→17:22)
[2019-12-18] MEDS: PIPERACILLIN/TAZOB 3.375 GM 3.375 GM in DEXTROSE 5%-WATER - 50 ML IVPB SCH ×3 (01:59→17:28)
--- NOTE | 2019-12-18 08:05 | PN ---
Progress Note, Physician Chief Complaint: Seen and examined in bed. States abdominal pain is resolved.Admites to smoking daily marijuana-tox screen sent. Remains on IV abx-NPO. Gen surg following History of Present Illness: 39 yo male with no significant pmh presents to the ED with complaints of a three day history of abdominal pain found to have a pericolic abscess - Current Medication List Current Medications: Active Medications Acetaminophen (Ofirmev Injection -) 1,000 mg IVPB Q8H PRN PRN Reason: PAIN LEVEL 4 - 6 Sodium Chloride (Normal Saline -) 1,000 mls @ 75 mls/hr IV ASDIR BASIA Last Admin: 12/17/19 21:16 Dose: 75 mls/hr Documented by: Piperacillin Sod/Tazobactam (Sod 3.375 gm/ Dextrose) 50 mls @ 100 mls/hr IVPB Q8H-IV BASIA; Protocol Last Admin: 12/18/19 01:59 Dose: 100 mls/hr Documented by: Ondansetron HCl (Zofran Injection) 4 mg IVPUSH Q6H PRN PRN Reason: NAUSEA - Objective Vital Signs: Vital Signs Temperature 98.1 F 12/18/19 05:00 Pulse Rate 69 12/18/19 05:00 Respiratory Rate 18 12/18/19 05:00 Blood Pressure 124/67 12/18/19 05:00 O2 Sat by Pulse Oximetry (%) 98 12/18/19 05:00 Constitutional: Yes: Well Nourished, No Distress, Calm Eyes: Yes: WNL, Conjunctiva Clear HENT: Yes: WNL, Atraumatic, Normocephalic Neck: Yes: WNL, Supple, Trachea Midline Cardiovascular: Yes: WNL, Regular Rate and Rhythm Respiratory: Yes: WNL, Regular, CTA Bilaterally Gastrointestinal: Yes: WNL, Normal Bowel Sounds, Soft ...Rectal Exam: Yes: Deferred Genitourinary: Yes: WNL Breast(s): Yes: WNL Musculoskeletal: Yes: WNL Extremities: Yes: WNL Edema: No Peripheral Pulses WNL: Yes Peripheral Pulses: Left Radial: 2+, Right Radial: 2+, Left Doralis Pedis: 2+, Right Dorsalis Pedis: 2+, Left Femoral: 2+, Right Femoral: 2+ Integumentary: Yes: WNL Neurological: Yes: WNL, Alert, Oriented ...Motor Strength: WNL Psychiatric: Yes: WNL, Alert, Oriented Labs: CBC, BMP 12/17/19 04:40 12/17/19 04:40 INR, PTT INR 1.23 (0.83-1.09) H 12/17/19 10:46 - ....Imaging Cat Scan: Report Reviewed (CT scan shows 5.5.x 4.8 x 3.8 cm pericolic ring-en hancing fluid complex likely an abscess) Problem List - Problems (1) Prophylactic measure Assessment/Plan: FEN Fluids: IVF Electrolytes: monitor & replete as needed Nutrition:NPO DVT ambulating Dispo Maintain as inpatient full code discharge planning Code(s): Z29.9 - ENCOUNTER FOR PROPHYLACTIC MEASURES, UNSPECIFIED (2) Pericolonic abscess Assessment/Plan: seen by Gen Surg c/w rescan next week and/or if decompensates possible Maldonado procedure maintain NPO & IVF c/w zosyn ID following Code(s): K63.0 - ABSCESS OF INTESTINE (3) Diverticulitis Assessment/Plan: acute complicated diverticulitis NPO IVF monitor pain/temp curve/cbc Code(s): K57.92 - DVTRCLI OF INTEST, PART UNSP, W/O PERF OR ABSCESS W/O BLEED (4) COVID-19 virus not detected Assessment/Plan: neg pcr Code(s): Z03.818 - ENCNTR FOR OBS FOR SUSP EXPSR TO OTH BIOLG AGENTS RULED OUT (5) Marijuana smoker Assessment/Plan: admitts to daily use tox screen pending Code(s): F12.90 - CANNABIS USE, UNSPECIFIED, UNCOMPLICATED Visit type - Emergency Visit Emergency Visit: Yes ED Registration Date: 12/17/19 Care time: The patient presented to the Emergency Department on the above date and was hospitalized for further evaluation of their emergent condition. - New Patient This patient is new to me today: Yes Date on this admission: 12/18/19 - Critical Care Critical Care patient: No - Discharge Referral Referred to [facility] No
[2019-12-18] MEDS: SODIUM CHLORIDE 1,000 ML IV SCH (12:10)
[2019-12-18 13:12] LABS: BASO % 0.3 % (0-2.0); EOS % 0.7 % (0-4.5); HEMATOCRIT 40.9 % (35.4-49); HEMOGLOBIN 13.8 GM/dL (11.7-16.9); LYMPH % 18.7 % (8-40); MCH 29.8 pg (25.7-33.7); MCHC 33.6 g/dl (32.0-35.9); MEAN CELL VOLUME 88.7 fl (80-96); MONO % 11.6 % (3.8-10.2); NEUT % 68.7 % (42.8-82.8); PLATELET COUNT 275 K/MM3 (134-434); RBC 4.61 M/mm3 (4.00-5.60); WHITE BLOOD COUNT 8.8 K/mm3 (4.0-10.0)
[2019-12-18 13:19] LABS: INR 1.26 (0.83-1.09); PROTHROMBIN TIME (PATIENT) 14.9 SEC (9.7-13.0)
[2019-12-18 13:38] LABS: ALBUMIN 2.7 g/dl (3.4-5.0); BILIRUBIN,TOTAL 0.6 mg/dL (0.2-1); BLOOD UREA NITROGEN 10.7 mg/dL (7-18); CALCIUM 8.4 mg/dL (8.5-10.1); CREATININE 0.7 mg/dL (0.55-1.3); MAGNESIUM 1.9 mg/dL (1.8-2.4); PHOSPHOROUS 3.2 mg/dL (2.5-4.9); POTASSIUM 4.1 mmol/L (3.5-5.1); TOT PROT 6.2 g/dl (6.4-8.2)
[2019-12-18 17:02] LABS: COCAINE, UR NEGATIVE ng/ml (CUTOFF=300); OPIATES, URI NEGATIVE ng/ml (CUTOFF=300); PHENCYCLIDINE,URINE NEGATIVE ng/ml (CUTOFF=25); URINE BARBITURATES NEGATIVE ng/ml (CUTOFF=200); URINE BENZODIAZEPINES NEGATIVE ng/ml (CUTOFF=200)
[2019-12-18 17:03] LABS: METHADONE, UR NEGATIVE ng/ml (CUTOFF=300); URINE AMPHETAMINES NEGATIVE ng/ml (CUTOFF=500)
--- NOTE | 2019-12-18 18:19 | PN ---
Progress Note, Physician History of Present Illness: Pt is alert, feeling better. Pain in LLQ controlled. NPO. Afebrile. - Current Medication List Current Medications: Active Medications Acetaminophen (Ofirmev Injection -) 1,000 mg IVPB Q8H PRN PRN Reason: PAIN LEVEL 4 - 6 Sodium Chloride (Normal Saline -) 1,000 mls @ 75 mls/hr IV ASDIR BASIA Last Admin: 12/18/19 12:10 Dose: 75 mls/hr Documented by: Piperacillin Sod/Tazobactam (Sod 3.375 gm/ Dextrose) 50 mls @ 100 mls/hr IVPB Q8H-IV BASIA; Protocol Last Admin: 12/18/19 17:28 Dose: 100 mls/hr Documented by: Ondansetron HCl (Zofran Injection) 4 mg IVPUSH Q6H PRN PRN Reason: NAUSEA Quetiapine Fumarate (Seroquel -) 25 mg PO HS BASIA - Objective Vital Signs: Vital Signs Temperature 98.9 F 12/18/19 13:00 Pulse Rate 57 L 12/18/19 13:00 Respiratory Rate 18 12/18/19 13:00 Blood Pressure 121/71 12/18/19 13:00 O2 Sat by Pulse Oximetry (%) 99 12/18/19 13:00 Constitutional: Yes: No Distress, Calm Cardiovascular: Yes: Regular Rate and Rhythm Respiratory: Yes: Regular Gastrointestinal: Yes: Normal Bowel Sounds, Soft, Tenderness (LLQ) Genitourinary: Yes: WNL Musculoskeletal: Yes: WNL Extremities: Yes: WNL Integumentary: Yes: WNL Neurological: Yes: Alert, Oriented Labs: CBC, BMP 12/18/19 12:35 12/18/19 12:35 INR, PTT INR 1.26 (0.83-1.09) H 12/18/19 12:35 Laboratory Last Values WBC 8.8 K/mm3 (4.0-10.0) 12/18/19 12:35 RBC 4.61 M/mm3 (4.00-5.60) 12/18/19 12:35 Hgb 13.8 GM/dL (11.7-16.9) 12/18/19 12:35 Hct 40.9 % (35.4-49) 12/18/19 12:35 MCV 88.7 fl (80-96) 12/18/19 12:35 MCH 29.8 pg (25.7-33.7) 12/18/19 12:35 MCHC 33.6 g/dl (32.0-35.9) 12/18/19 12:35 RDW 13.0 % (11.9-15.9) 12/18/19 12:35 Plt Count 275 K/MM3 (134-434) 12/18/19 12:35 MPV 7.0 fl (7.5-11.1) L 12/18/19 12:35 Absolute Neuts (auto) 6.1 K/mm3 (1.5-8.0) 12/18/19 12:35 Neutrophils % 68.7 % (42.8-82.8) 12/18/19 12:35 Lymphocytes % 18.7 % (8-40) D 12/18/19 12:35 Monocytes % 11.6 % (3.8-10.2) H 12/18/19 12:35 Eosinophils % 0.7 % (0-4.5) D 12/18/19 12:35 Basophils % 0.3 % (0-2.0) 12/18/19 12:35 Nucleated RBC % 0 % (0-0) 12/18/19 12:35 PT with INR 14.90 SEC (9.7-13.0) H 12/18/19 12:35 INR 1.26 (0.83-1.09) H 12/18/19 12:35 PTT (Actin FS) 29.8 SECONDS (25.2-36.5) 12/17/19 10:46 Sodium 140 mmol/L (136-145) 12/18/19 12:35 Potassium 4.1 mmol/L (3.5-5.1) 12/18/19 12:35 Chloride 105 mmol/L (98-107) 12/18/19 12:35 Carbon Dioxide 24 mmol/L (21-32) 12/18/19 12:35 Anion Gap 11 MMOL/L (8-16) 12/18/19 12:35 BUN 10.7 mg/dL (7-18) 12/18/19 12:35 Creatinine 0.7 mg/dL (0.55-1.3) 12/18/19 12:35 Est GFR (CKD-EPI)AfAm 138.75 12/18/19 12:35 Est GFR (CKD-EPI)NonAf 119.71 12/18/19 12:35 Random Glucose 76 mg/dL (74-106) 12/18/19 12:35 Calcium 8.4 mg/dL (8.5-10.1) L 12/18/19 12:35 Phosphorus 3.2 mg/dL (2.5-4.9) 12/18/19 12:35 Magnesium 1.9 mg/dL (1.8-2.4) 12/18/19 12:35 Total Bilirubin 0.6 mg/dL (0.2-1) 12/18/19 12:35 AST 19 U/L (15-37) 12/18/19 12:35 ALT 52 U/L (13-61) 12/18/19 12:35 Alkaline Phosphatase 84 U/L (45-117) 12/18/19 12:35 Total Protein 6.2 g/dl (6.4-8.2) L 12/18/19 12:35 Albumin 2.7 g/dl (3.4-5.0) L 12/18/19 12:35 Urine Color Yellow 12/17/19 06:40 Urine Appearance Clear 12/17/19 06:40 Urine pH 6.0 (5.0-8.0) 12/17/19 06:40 Ur Specific [place] 1.085 (1.010-1.035) H 12/17/19 06:40 Urine Protein 1+ (NEGATIVE) H 12/17/19 06:40 Urine Glucose (UA) Negative (NEGATIVE) 12/17/19 06:40 Urine Ketones 40 mg/dl (NEGATIVE) 12/17/19 06:40 Urine Blood 3+ (NEGATIVE) H 12/17/19 06:40 Urine Nitrite Negatine (NEGATIVE) 12/17/19 06:40 Urine Bilirubin Negative (NEGATIVE) 12/17/19 06:40 Urine Urobilinogen 1.0 mg/dL (0.2-1.0) 12/17/19 06:40 Ur Leukocyte Esterase Trace (NEGATIVE) 12/17/19 06:40 Urine WBC (Auto) 10.6 /uL (0-25.8) 12/17/19 06:40 Urine RBC (Auto) 192.1 /uL (0-23.9) 12/17/19 06:40 Urine Casts (Auto) 2.87 /uL (0-3.1) 12/17/19 06:40 U Epithel Cells (Auto) 10.2 /uL (0-25.1) 12/17/19 06:40 Urine Bacteria (Auto) 12.4 /uL (0-1359) 12/17/19 06:40 Opiates Screen Negative ng/ml (QCVGOV=577) 12/18/19 15:40 Methadone Screen Negative ng/ml (TOAPAG=467) 12/18/19 15:40 Barbiturate Screen Negative ng/ml (SKYTJJ=960) 12/18/19 15:40 Phencyclidine Screen Negative ng/ml (CUTOFF=25) 12/18/19 15:40 Ur Amphetamines Screen Negative ng/ml (EURDUI=574) 12/18/19 15:40 MDMA (Ecstasy) Screen Negative ng/ml (QMEWGA=256) 12/18/19 15:40 Benzodiazepines Screen Negative ng/ml (ZYSLUD=127) 12/18/19 15:40 Cocaine Screen Negative ng/ml (RMEUPT=643) 12/18/19 15:40 U Marijuana (THC) Screen Positive ng/ml (CUTOFF=50) A* 12/18/19 15:40 COVID-19 (CHAKA) Not detected (Not Detected) 12/17/19 07:15 Blood Type B POSITIVE 12/17/19 09:22 Antibody Screen Negative 12/17/19 09:22 - ....Imaging Cat Scan: Report Reviewed Problem List - Problems (1) Abscess of sigmoid colon Code(s): K63.0 - ABSCESS OF INTESTINE (2) Diverticulitis Code(s): K57.92 - DVTRCLI OF INTEST, PART UNSP, W/O PERF OR ABSCESS W/O BLEED (3) Pericolonic abscess Code(s): K63.0 - ABSCESS OF INTESTINE Assessment/Plan Acute sigmoid diverticulitis with abscess -- wbc down to normal, afebrile, abd pain less -- continue Zosyn -- surgery following
[2019-12-18] MEDS: QUEtiapine FUMARATE 25 MG TABLET PO SCH (21:37)
[2019-12-19] MEDS ORDERED: PIPERACILLIN/TAZOBACTAM 3.375 GM VIAL IVPB ONE ×3 (00:54→17:57)
[2019-12-19] MEDS ORDERED: DEXTROSE 5%-WATER - 50 ML IVPB ONE ×3 (00:54→17:57)
[2019-12-19] MEDS: PIPERACILLIN/TAZOB 3.375 GM 3.375 GM in DEXTROSE 5%-WATER - 50 ML IVPB SCH ×3 (02:16→18:19)
[2019-12-19] MEDS: SODIUM CHLORIDE 1,000 ML IV SCH ×2 (02:19→18:19)
--- NOTE | 2019-12-19 08:14 | PN ---
Progress Note, Physician History of Present Illness: 39 yo male with no significant pmh presents to the ED with complaints of a three day history of abdominal pain found to have a pericolic abscess - Current Medication List Current Medications: Active Medications Acetaminophen (Ofirmev Injection -) 1,000 mg IVPB Q8H PRN PRN Reason: PAIN LEVEL 4 - 6 Sodium Chloride (Normal Saline -) 1,000 mls @ 75 mls/hr IV ASDIR BASIA Last Admin: 12/19/19 02:19 Dose: 75 mls/hr Documented by: Piperacillin Sod/Tazobactam (Sod 3.375 gm/ Dextrose) 50 mls @ 100 mls/hr IVPB Q8H-IV BASIA; Protocol Last Admin: 12/19/19 02:16 Dose: 100 mls/hr Documented by: Ondansetron HCl (Zofran Injection) 4 mg IVPUSH Q6H PRN PRN Reason: NAUSEA Quetiapine Fumarate (Seroquel -) 25 mg PO HS BASIA Last Admin: 12/18/19 21:37 Dose: 25 mg Documented by: - Objective Vital Signs: Vital Signs Temperature 98.0 F 12/19/19 06:00 Pulse Rate 58 L 12/19/19 06:00 Respiratory Rate 18 12/19/19 06:00 Blood Pressure 123/67 12/19/19 06:00 O2 Sat by Pulse Oximetry (%) 99 12/19/19 06:00 Labs: CBC, BMP 12/18/19 12:35 12/18/19 12:35 INR, PTT INR 1.26 (0.83-1.09) H 12/18/19 12:35 Problem List - Problems (1) Prophylactic measure Code(s): Z29.9 - ENCOUNTER FOR PROPHYLACTIC MEASURES, UNSPECIFIED (2) Pericolonic abscess Code(s): K63.0 - ABSCESS OF INTESTINE (3) Diverticulitis Code(s): K57.92 - DVTRCLI OF INTEST, PART UNSP, W/O PERF OR ABSCESS W/O BLEED (4) COVID-19 virus not detected Code(s): Z03.818 - ENCNTR FOR OBS FOR SUSP EXPSR TO OTH BIOLG AGENTS RULED OUT (5) Marijuana smoker Code(s): F12.90 - CANNABIS USE, UNSPECIFIED, UNCOMPLICATED
[2019-12-19 09:00] LABS: BASO % 0.4 % (0-2.0); HEMATOCRIT 43.8 % (35.4-49); HEMOGLOBIN 14.8 GM/dL (11.7-16.9); LYMPH % 23.9 % (8-40); MCH 30.3 pg (25.7-33.7); MCHC 33.9 g/dl (32.0-35.9); MEAN CELL VOLUME 89.4 fl (80-96); MEAN PLT VOLUME 7.1 fl (7.5-11.1); MONO % 12.1 % (3.8-10.2); NEUT % 62.6 % (42.8-82.8); PLATELET COUNT 290 K/MM3 (134-434); RDW 13.1 % (11.9-15.9); WHITE BLOOD COUNT 7.5 K/mm3 (4.0-10.0)
[2019-12-19 09:23] LABS: ALBUMIN 2.8 g/dl (3.4-5.0); BILIRUBIN,TOTAL 0.4 mg/dL (0.2-1); BLOOD UREA NITROGEN 10.8 mg/dL (7-18); CALCIUM 8.6 mg/dL (8.5-10.1); CREATININE 0.8 mg/dL (0.55-1.3); MAGNESIUM 1.9 mg/dL (1.8-2.4); POTASSIUM 4.4 mmol/L (3.5-5.1); TOT PROT 6.6 g/dl (6.4-8.2)
--- NOTE | 2019-12-19 11:24 | PN ---
Progress Note (short form) - Note Progress Note: Attending Surgeon Seen in f/u; no complaint VSS AF abdo-soft; non tender WBC-nl IMP: complicated diverticulitis PLAN: Advance to clear liquid diet and f/u imaging later this week; continue IVAB's. Ernesto Prabhakar MD FACS
--- NOTE | 2019-12-19 12:02 | EKG ---
Test Reason : Blood Pressure : / mmHG Vent. Rate : 062 BPM Atrial Rate : 062 BPM P-R Int : 126 ms QRS Dur : 086 ms QT Int : 434 ms P-R-T Axes : 052 016 024 degrees QTc Int : 440 ms NORMAL SINUS RHYTHM NORMAL ECG NO PREVIOUS ECGS AVAILABLE Confirmed by MARBELLA ZHANG MD ([id number]) on 12/19/2019 12:01:33 PM Referred By: Marcin CARRILLO Confirmed By:MARBELLA ZHANG MD
--- NOTE | 2019-12-19 12:06 | PN ---
Physical Exam: SUBJECTIVE: Patient seen and examined Patient seen and examined. He is complaining of mild abdominal pain he ate his breakfast no nausea vomiting. He is on soft diet OBJECTIVE: Vital Signs Period Temp Pulse Resp BP Sys/Unger Pulse Ox Last 24 Hr 97.4 F-98.9 F 53-67 18-69 121-138/58-77 97-99 GENERAL: The patient is awake, alert, and fully oriented, in no acute distress. HEAD: Normal with no signs of trauma. EYES: PERRL, extraocular movements intact, sclera anicteric, conjunctiva clear. No ptosis. ENT: Ears normal, nares patent, oropharynx clear without exudates, moist mucous membranes. NECK: Trachea midline, full range of motion, supple. LUNGS: Breath sounds equal, clear to auscultation bilaterally, no wheezes, no crackles, no accessory muscle use. HEART: Regular rate and rhythm, S1, S2 without murmur, rub or gallop. ABDOMEN: Soft, left lower quadrant mild tenderness no rebound tenderness. rebound, no hepatosplenomegaly, no masses. EXTREMITIES: 2+ pulses, warm, well-perfused, no edema. NEUROLOGICAL: Cranial nerves II through XII grossly intact. Normal speech, gait not observed. PSYCH: Normal mood, normal affect. SKIN: Warm, dry, normal turgor, no rashes or lesions noted Laboratory Results - last 24 hr 12/17/19 12/18/19 12/18/19 07:15 12:35 12:35 WBC 8.8 RBC 4.61 Hgb 13.8 Hct 40.9 MCV 88.7 MCH 29.8 MCHC 33.6 RDW 13.0 Plt Count 275 MPV 7.0 L Absolute Neuts (auto) 6.1 Neutrophils % 68.7 Lymphocytes % 18.7 D Monocytes % 11.6 H Eosinophils % 0.7 D Basophils % 0.3 Nucleated RBC % 0 PT with INR INR Sodium 140 Potassium 4.1 Chloride 105 Carbon Dioxide 24 Anion Gap 11 BUN 10.7 Creatinine 0.7 Est GFR (CKD-EPI)AfAm 138.75 Est GFR (CKD-EPI)NonAf 119.71 Random Glucose 76 Calcium 8.4 L Phosphorus 3.2 Magnesium 1.9 Total Bilirubin 0.6 AST 19 ALT 52 Alkaline Phosphatase 84 Total Protein 6.2 L Albumin 2.7 L Opiates Screen Methadone Screen Barbiturate Screen Phencyclidine Screen Ur Amphetamines Screen MDMA (Ecstasy) Screen Benzodiazepines Screen Cocaine Screen U Marijuana (THC) Screen COVID-19 ([facility]AKA) Not detected 12/18/19 12/18/19 12/19/19 12:35 15:40 08:25 WBC 7.5 RBC 4.90 Hgb 14.8 Hct 43.8 MCV 89.4 MCH 30.3 MCHC 33.9 RDW 13.1 Plt Count 290 MPV 7.1 L Absolute Neuts (auto) 4.7 Neutrophils % 62.6 Lymphocytes % 23.9 D Monocytes % 12.1 H Eosinophils % 1.0 Basophils % 0.4 Nucleated RBC % 0 PT with INR 14.90 H INR 1.26 H Sodium Potassium Chloride Carbon Dioxide Anion Gap BUN Creatinine Est GFR (CKD-EPI)AfAm Est GFR (CKD-EPI)NonAf Random Glucose Calcium Phosphorus Magnesium Total Bilirubin AST ALT Alkaline Phosphatase Total Protein Albumin Opiates Screen Negative Methadone Screen Negative Barbiturate Screen Negative Phencyclidine Screen Negative Ur Amphetamines Screen Negative MDMA (Ecstasy) Screen Negative Benzodiazepines Screen Negative Cocaine Screen Negative U Marijuana (THC) Screen Positive A* COVID-19 (CHAKA) 12/19/19 08:25 WBC RBC Hgb Hct MCV MCH MCHC RDW Plt Count MPV Absolute Neuts (auto) Neutrophils % Lymphocytes % Monocytes % Eosinophils % Basophils % Nucleated RBC % PT with INR INR Sodium 140 Potassium 4.4 Chloride 105 Carbon Dioxide 27 Anion Gap 9 BUN 10.8 Creatinine 0.8 Est GFR (CKD-EPI)AfAm 131.34 Est GFR (CKD-EPI)NonAf 113.32 Random Glucose 70 L Calcium 8.6 Phosphorus Magnesium 1.9 Total Bilirubin 0.4 AST 16 ALT 46 Alkaline Phosphatase 82 Total Protein 6.6 Albumin 2.8 L Opiates Screen Methadone Screen Barbiturate Screen Phencyclidine Screen Ur Amphetamines Screen MDMA (Ecstasy) Screen Benzodiazepines Screen Cocaine Screen U Marijuana (THC) Screen COVID-19 (CHAKA) Active Medications Generic Name Dose Route Start Last Admin Trade Name Freq PRN Reason Stop Dose Admin Acetaminophen 1,000 mg 12/17/19 07:30 Ofirmev Injection - IVPB Q8H PRN PAIN LEVEL 4 - 6 Sodium Chloride 1,000 mls @ 75 mls/hr 12/17/19 07:30 12/19/19 02:19 Normal Saline - IV 75 mls/hr ASDIR BASIA Administration Piperacillin Sod/Tazobactam 50 mls @ 100 mls/hr 12/17/19 18:00 12/19/19 10:08 Sod 3.375 gm/ Dextrose IVPB 100 mls/hr Q8H-IV BASIA Administration Protocol Ondansetron HCl 4 mg 12/17/19 07:00 Zofran Injection IVPUSH Q6H PRN NAUSEA Quetiapine Fumarate 25 mg 12/18/19 22:00 12/18/19 21:37 Seroquel - PO 25 mg HS BASIA Administration ASSESSMENT/PLAN: 39 yo male with no significant pmh presents to the ED with complaints of a three day history of abdominal pain found to have a pericolic abscess Plan seen by surgery today recommended continue antibiotic continue current diet out of bed patient is comfortable white cell count is come back to normal. Visit type - Emergency Visit Emergency Visit: Yes ED Registration Date: 12/17/19 Care time: The patient presented to the Emergency Department on the above date and was hospitalized for further evaluation of their emergent condition. - New Patient This patient is new to me today: Yes Date on this admission: 12/19/19 - Critical Care Critical Care patient: No - Discharge Referral Referred to [facility] Med [facility] No
--- NOTE | 2019-12-19 18:22 | PN ---
Progress Note, Physician History of Present Illness: Pt doing well. Remains afebrile. Denies abd pain but still a bit sore in LLQ. Tolerated liquid diet. - Current Medication List Current Medications: Active Medications Acetaminophen (Ofirmev Injection -) 1,000 mg IVPB Q8H PRN PRN Reason: PAIN LEVEL 4 - 6 Sodium Chloride (Normal Saline -) 1,000 mls @ 75 mls/hr IV ASDIR BASIA Last Admin: 12/19/19 18:19 Dose: 75 mls/hr Documented by: Piperacillin Sod/Tazobactam (Sod 3.375 gm/ Dextrose) 50 mls @ 100 mls/hr IVPB Q8H-IV BASIA; Protocol Last Admin: 12/19/19 18:19 Dose: 100 mls/hr Documented by: Ondansetron HCl (Zofran Injection) 4 mg IVPUSH Q6H PRN PRN Reason: NAUSEA Quetiapine Fumarate (Seroquel -) 25 mg PO HS BASIA Last Admin: 12/18/19 21:37 Dose: 25 mg Documented by: - Objective Vital Signs: Vital Signs Temperature 97.9 F 12/19/19 14:00 Pulse Rate 69 12/19/19 14:00 Respiratory Rate 18 12/19/19 14:00 Blood Pressure 125/71 12/19/19 14:00 O2 Sat by Pulse Oximetry (%) 98 12/19/19 14:00 Constitutional: Yes: No Distress, Calm Cardiovascular: Yes: Regular Rate and Rhythm Respiratory: Yes: CTA Bilaterally Gastrointestinal: Yes: Normal Bowel Sounds, Soft, Tenderness (less abd pain LLQ, +deep palpation) Genitourinary: Yes: WNL Extremities: Yes: WNL Integumentary: Yes: WNL Neurological: Yes: Alert, Oriented Labs: CBC, BMP 12/19/19 08:25 12/19/19 08:25 INR, PTT INR 1.26 (0.83-1.09) H 12/18/19 12:35 Laboratory Results - last 24 hr 12/19/19 12/19/19 08:25 08:25 WBC 7.5 RBC 4.90 Hgb 14.8 Hct 43.8 MCV 89.4 MCH 30.3 MCHC 33.9 RDW 13.1 Plt Count 290 MPV 7.1 L Absolute Neuts (auto) 4.7 Neutrophils % 62.6 Lymphocytes % 23.9 D Monocytes % 12.1 H Eosinophils % 1.0 Basophils % 0.4 Nucleated RBC % 0 Sodium 140 Potassium 4.4 Chloride 105 Carbon Dioxide 27 Anion Gap 9 BUN 10.8 Creatinine 0.8 Est GFR (CKD-EPI)AfAm 131.34 Est GFR (CKD-EPI)NonAf 113.32 Random Glucose 70 L Calcium 8.6 Magnesium 1.9 Total Bilirubin 0.4 AST 16 ALT 46 Alkaline Phosphatase 82 Total Protein 6.6 Albumin 2.8 L Problem List - Problems (1) Abscess of sigmoid colon Code(s): K63.0 - ABSCESS OF INTESTINE (2) Diverticulitis Code(s): K57.92 - DVTRCLI OF INTEST, PART UNSP, W/O PERF OR ABSCESS W/O BLEED (3) Pericolonic abscess Code(s): K63.0 - ABSCESS OF INTESTINE Assessment/Plan Acute sigmoid diverticulitis with abscess -- wbc down to normal, afebrile, denies abd pain -- diet being advanced, monitor for tolerance -- continue Zosyn -- for repeat CT this week -- surgery following
[2019-12-19] MEDS: QUEtiapine FUMARATE 25 MG TABLET PO SCH (21:19)
[2019-12-19] MEDS ORDERED: ACETAMINOPHEN 500 MG TABLET (FP) PO PRN (21:37)
[2019-12-20] MEDS ORDERED: PIPERACILLIN/TAZOBACTAM 3.375 GM VIAL IVPB ONE ×3 (00:23→17:19)
[2019-12-20] MEDS ORDERED: DEXTROSE 5%-WATER - 50 ML IVPB ONE ×3 (00:24→17:19)
[2019-12-20] MEDS: PIPERACILLIN/TAZOB 3.375 GM 3.375 GM in DEXTROSE 5%-WATER - 50 ML IVPB SCH ×3 (01:36→17:52)
[2019-12-20 08:51] LABS: BASO % 0.4 % (0-2.0); EOS % 1.1 % (0-4.5); HEMATOCRIT 44.2 % (35.4-49); HEMOGLOBIN 14.7 GM/dL (11.7-16.9); LYMPH % 26.7 % (8-40); MCH 29.4 pg (25.7-33.7); MCHC 33.2 g/dl (32.0-35.9); MEAN CELL VOLUME 88.5 fl (80-96); MEAN PLT VOLUME 6.8 fl (7.5-11.1); MONO % 9.3 % (3.8-10.2); NEUT % 62.5 % (42.8-82.8); PLATELET COUNT 346 K/MM3 (134-434); RDW 12.9 % (11.9-15.9)
--- NOTE | 2019-12-20 09:00 | PN.GI ---
GI Progress Note Subjective: Sitting up, states feeling well No abdominal pain Fluid not amenable to IR drainage - Objective Vital Signs: Vital Signs Temperature 97.4 F L 12/20/19 06:00 Pulse Rate 68 12/20/19 08:45 Respiratory Rate 18 12/20/19 08:45 Blood Pressure 118/72 12/20/19 08:45 O2 Sat by Pulse Oximetry (%) 99 12/20/19 08:45 Constitutional: Calm Eyes: No: Sclera Icterus Cardiovascular: Yes: Regular Rate and Rhythm Respiratory: Yes: CTA Bilaterally Gastrointestinal Inspection: No: Distention ...Auscultate: Yes: Normoactive Bowel Sounds ...Palpate: Yes: Soft. No: Hepatomegaly, Splenomegaly, Tenderness ...Percussion: No: Tympanitic Edema: No (No LE edema) Neurological: Yes: Alert Labs: CBC, BMP 12/20/19 08:28 INR, PTT INR 1.26 (0.83-1.09) H 12/18/19 12:35 Problem List - Problems (1) Diverticulitis of large intestine with abscess without bleeding Assessment/Plan: Compicated sigmoid diverticulitis: 1st episode: Clinically much improved Timing of repeat imaging per ID/Surgery AM labs IV Abx per ID Code(s): K57.20 - DVTRCLI OF LG INT W PERFORATION AND ABSCESS W/O BLEEDING
[2019-12-20 09:33] LABS: ALBUMIN 2.9 g/dl (3.4-5.0); BILIRUBIN,TOTAL 0.4 mg/dL (0.2-1); BLOOD UREA NITROGEN 6.6 mg/dL (7-18); CALCIUM 8.7 mg/dL (8.5-10.1); CREATININE 0.8 mg/dL (0.55-1.3); MAGNESIUM 1.8 mg/dL (1.8-2.4); POTASSIUM 4.2 mmol/L (3.5-5.1); TOT PROT 6.7 g/dl (6.4-8.2)
[2019-12-20] MEDS: SODIUM CHLORIDE 1,000 ML IV SCH (09:44)
--- NOTE | 2019-12-20 10:46 | PN ---
Progress Note (short form) - Note Progress Note: Pt seen and examined. Reports he is feeling well. States pain has resolved. Has been oob in the room without issue. Voiding without issue. Having bms (mixture of diarrhea and regular stool). Denies cp/sob, n/v. Tolerating clears. Vital Signs Temp 97.4 F L 12/20/19 06:00 Pulse 68 12/20/19 08:45 Resp 18 12/20/19 08:45 BP 118/72 12/20/19 08:45 Pulse Ox 99 12/20/19 08:45 Intake & Output 12/19/19 12/19/19 12/20/19 11:59 23:59 11:59 Intake Total 873 656 9023 Balance 841 425 5258 Weight 175 lb Intake: IV 800 800 Normal Saline - 1,000 ml 800 800 @ 75 mls/hr IV ASDIR BASIA Rx#:[id number] IVPB 50 50 Oral 0 100 300 Other: Voiding Method Toilet Toilet Toilet # Unmeasured Voids Void 1 2 1 Bowel Movement No No No Height 5 ft 9 in Body Mass Index (BMI) 25.8 CBC, BMP 12/20/19 08:28 12/20/19 08:28 Gen: awake, alert, nad Resp: unlabored on RA Abdo: soft, nt/nd, +bowel sounds in all four quadrants A/P: 39 y/o male w/ no significant PMHx a/w a three day history of abdominal pain, found to have diverticulitis with abscess. afebrile, vss no leukocytosis pain improved tolerating clears -Continue npo, ivf -serial abdo exams -plan to rescan tomorrow vs friday (surgery will order) -continue iv abx per ID d/w attending Dr Prabhakar <Robert Beach - Last Filed: 12/20/19 10:50> - Note Progress Note: Attending Surgeon: I personally saw and examined the patient. My examination reveals a patient with diverticulitis. I discussed the case with the surgical PA and agree with their findings and plan of care with any exceptions as noted. ~ Ernesto Prabhakar MD, FACS <Ernesto Prabhakar - Last Filed: 01/11/20 08:35>
--- NOTE | 2019-12-20 11:31 | PN ---
Progress Note, Physician History of Present Illness: pain better still present - Current Medication List Current Medications: Active Medications Acetaminophen (Tylenol -) 1,000 mg PO Q8H PRN PRN Reason: PAIN LEVEL 4 - 6 Sodium Chloride (Normal Saline -) 1,000 mls @ 75 mls/hr IV ASDIR BASIA Last Admin: 12/20/19 09:44 Dose: 75 mls/hr Documented by: Piperacillin Sod/Tazobactam (Sod 3.375 gm/ Dextrose) 50 mls @ 100 mls/hr IVPB Q8H-IV BASIA; Protocol Last Admin: 12/20/19 09:50 Dose: 100 mls/hr Documented by: Ondansetron HCl (Zofran Injection) 4 mg IVPUSH Q6H PRN PRN Reason: NAUSEA Quetiapine Fumarate (Seroquel -) 25 mg PO HS BASIA Last Admin: 12/19/19 21:19 Dose: 25 mg Documented by: - Objective Vital Signs: Vital Signs Temperature 97.4 F L 12/20/19 06:00 Pulse Rate 68 12/20/19 08:45 Respiratory Rate 18 12/20/19 08:45 Blood Pressure 118/72 12/20/19 08:45 O2 Sat by Pulse Oximetry (%) 99 12/20/19 08:45 Constitutional: Yes: No Distress, Calm Cardiovascular: Yes: S1, S2 Respiratory: Yes: Regular, CTA Bilaterally Gastrointestinal: Yes: Soft, Hypoactive Bowel Sounds, Tenderness Musculoskeletal: Yes: WNL Extremities: Yes: Other Neurological: Yes: Alert, Oriented Psychiatric: Yes: Alert, Oriented Labs: CBC, BMP 12/20/19 08:28 12/20/19 08:28 INR, PTT INR 1.26 (0.83-1.09) H 12/18/19 12:35 Assessment/Plan Problem List - Problems (1) Abscess of sigmoid colon Code(s): K63.0 - ABSCESS OF INTESTINE (2) Diverticulitis Code(s): K57.92 - DVTRCLI OF INTEST, PART UNSP, W/O PERF OR ABSCESS W/O BLEED (3) Pericolonic abscess Code(s): K63.0 - ABSCESS OF INTESTINE Assessment/Plan Acute sigmoid diverticulitis with abscess -- wbc down to normal, afebrile, denies abd pain -- diet being advanced, monitor for tolerance -- continue Zosyn -- for repeat CT this week -- surgery following
--- NOTE | 2019-12-20 12:28 | PN ---
Progress Note (short form) - Note Progress Note: S: No acute complaints, no events overnight. Abdominal pain has markedly improved and tolerating clear liquids O: Vital Signs Temperature 97.4 F L 12/20/19 06:00 Pulse Rate 68 12/20/19 08:45 Respiratory Rate 18 12/20/19 08:45 Blood Pressure 118/72 12/20/19 08:45 O2 Sat by Pulse Oximetry (%) 99 12/20/19 08:45 PE: Gen: NAD, awake, alert, laying in bed HEENT: NC/AT, EMERSON, MMM Neck: No JVD LUNG: CTA b/l without wheezes or rales CARD: RRR no murmurs ABD: Soft, minimal TTP RLQ, nondistendend, normoactive BS, no ecchymosis noted, no guarding, no rebound, no hepatomegaly EXT: No edema, strong distal pulses b/l Skin: No rashes or lesions CBC, BMP 12/20/19 08:28 12/20/19 08:28 Hepatic Panel Total Bilirubin 0.4 mg/dL (0.2-1) 12/20/19 08:28 AST 13 U/L (15-37) L 12/20/19 08:28 ALT 41 U/L (13-61) 12/20/19 08:28 Alkaline Phosphatase 73 U/L (45-117) 12/20/19 08:28 Albumin 2.9 g/dl (3.4-5.0) L 12/20/19 08:28 A/P: Acute complicated diverticulitis with pericolic abscess --Hinchey I classification --GI and surgery on board --Patient tolerating clear liquids: to continue --Discussed with surgical team: will rescan Friday vs. Friday for resolving abscess formation --Continue Zosyn per ID for now --Mild IVF hydration for now Bernabe Murrell DO - IM
[2019-12-20] MEDS: QUEtiapine FUMARATE 25 MG TABLET PO SCH (21:32)
[2019-12-21] MEDS ORDERED: DEXTROSE 5%-WATER - 50 ML IVPB ONE (01:44)
[2019-12-21] MEDS ORDERED: PIPERACILLIN/TAZOBACTAM 3.375 GM VIAL IVPB ONE (01:44)
[2019-12-21] MEDS: PIPERACILLIN/TAZOB 3.375 GM 3.375 GM in DEXTROSE 5%-WATER - 50 ML IVPB SCH ×2 (02:07→13:17)
[2019-12-21] MEDS: SODIUM CHLORIDE 1,000 ML IV SCH ×2 (02:10→10:43)
[2019-12-21 08:18] LABS: BASO % 0.5 % (0-2.0); EOS % 1.7 % (0-4.5); HEMATOCRIT 43.7 % (35.4-49); HEMOGLOBIN 14.7 GM/dL (11.7-16.9); LYMPH % 33.8 % (8-40); MCH 29.7 pg (25.7-33.7); MCHC 33.7 g/dl (32.0-35.9); MEAN CELL VOLUME 88.2 fl (80-96); MEAN PLT VOLUME 6.8 fl (7.5-11.1); MONO % 10.4 % (3.8-10.2); NEUT % 53.6 % (42.8-82.8); PLATELET COUNT 359 K/MM3 (134-434); RBC 4.96 M/mm3 (4.00-5.60); RDW 12.7 % (11.9-15.9); WHITE BLOOD COUNT 6.1 K/mm3 (4.0-10.0)
[2019-12-21 08:36] LABS: BILIRUBIN,TOTAL 0.7 mg/dL (0.2-1); BLOOD UREA NITROGEN 7.6 mg/dL (7-18); CALCIUM 8.9 mg/dL (8.5-10.1); CREATININE 0.8 mg/dL (0.55-1.3); TOT PROT 6.5 g/dl (6.4-8.2)
--- NOTE | 2019-12-21 10:05 | PN ---
Progress Note (short form) - Note Progress Note: Pt seen and examined. Reports he is feeling well. States pain has not recurred. Has been oob in the room without issue. Voiding without issue. Having bms (mixture of diarrhea and regular stool). Denies cp/sob, n/v. Tolerating clears. Vital Signs Temp 97.6 F 12/21/19 06:00 Pulse 71 12/21/19 06:00 Resp 18 12/21/19 06:00 BP 113/77 12/21/19 06:00 Pulse Ox 100 12/21/19 06:00 Intake & Output 12/20/19 12/20/19 12/21/19 11:59 23:59 11:59 Intake Total 1150 1470 1175 Balance 1150 1470 1175 Intake: IV 800 750 825 Normal Saline - 1,000 ml 800 750 825 @ 75 mls/hr IV ASDIR BASIA Rx#:[id number] IVPB 50 100 50 Oral 300 620 300 Other: Voiding Method Toilet Toilet Toilet # Unmeasured Voids Void 1 2 1 Bowel Movement No No No CBC, BMP 12/21/19 07:25 12/21/19 07:25 Gen: awake, alert, nad Resp: unlabored on RA Abdo: soft, nt/nd, +bowel sounds in all four quadrants A/P: 39 y/o male w/ no significant PMHx a/w a three day history of abdominal pain, found to have diverticulitis with abscess. afebrile, vss no leukocytosis pain improved tolerating clears -regulr diet ordered for lunch -serial abdo exams -plan to rescan tomorrow (surgery will order) -continue iv abx per ID d/w attending Dr Prabhakar <Robert Beach - Last Filed: 12/21/19 10:06> - Note Progress Note: Attending Surgeon: I personally saw and examined the patient. My examination reveals a patient with diverticulitis. I discussed the case with the surgical PA and agree with their findings and plan of care with any exceptions as noted. ~ Ernesto Prabhakar MD, FACS <Ernesto Prabhakar - Last Filed: 01/11/20 08:36>
--- NOTE | 2019-12-21 12:43 | PN ---
Physical Exam: SUBJECTIVE: Patient seen and examined. He tells me he feels better, no further abdominal pain. He ate a regular diet for lunch and has tolerated it so far. He tells me he follows with Dr. Reese who is is PCP and sees him at the office. OBJECTIVE: Dr. Reese/Dr. Catherine to resume care tomorrow -------- Patient is a 39 year old male who presents to the ED on 12/17/2019 for abdominal pain, ct scan showed acute complicated diverticulitis with pericolic abscess. Vital Signs Period Temp Pulse Resp BP Sys/Unger Pulse Ox Last 24 Hr 97.6 F-98.1 F 61-77 18-124 113-124/67-77 98-100 GENERAL: The patient is awake, alert, and fully oriented, in no acute distress. HEAD: Normal with no signs of trauma. EYES: PERRL, extraocular movements intact, sclera anicteric, conjunctiva clear. No ptosis. ENT: Ears normal, nares patent, oropharynx clear without exudates, moist mucous membranes. NECK: Trachea midline, full range of motion, supple. LUNGS: Breath sounds equal, clear to auscultation bilaterally HEART: Regular rate and rhythm ABDOMEN: Soft, nontender, nondistended, normoactive bowel sounds, no guarding, no rebound, no hepatosplenomegaly, no masses. EXTREMITIES: no edema. NEUROLOGICAL: normal speech, gait not observed. PSYCH: Normal mood, normal affect. Laboratory Results - last 24 hr 12/21/19 12/21/19 07:25 07:25 WBC 6.1 RBC 4.96 Hgb 14.7 Hct 43.7 MCV 88.2 MCH 29.7 MCHC 33.7 RDW 12.7 Plt Count 359 MPV 6.8 L Absolute Neuts (auto) 3.3 Neutrophils % 53.6 Lymphocytes % 33.8 D Monocytes % 10.4 H Eosinophils % 1.7 Basophils % 0.5 Nucleated RBC % 0 Sodium 141 Potassium 4.0 Chloride 104 Carbon Dioxide 32 Anion Gap 5 L BUN 7.6 Creatinine 0.8 Est GFR (CKD-EPI)AfAm 131.34 Est GFR (CKD-EPI)NonAf 113.32 Random Glucose 103 Calcium 8.9 Magnesium 2.0 Total Bilirubin 0.7 AST 15 ALT 34 Alkaline Phosphatase 68 Total Protein 6.5 Albumin 3.0 L Active Medications Generic Name Dose Route Start Last Admin Trade Name Isadora PRN Reason Stop Dose Admin Acetaminophen 1,000 mg 12/19/19 21:37 Tylenol - PO Q8H PRN PAIN LEVEL 4 - 6 Sodium Chloride 1,000 mls @ 75 mls/hr 12/17/19 07:30 12/21/19 10:43 Normal Saline - IV Not Given ASDIR BASIA Piperacillin Sod/Tazobactam 50 mls @ 100 mls/hr 12/17/19 18:00 12/21/19 02:07 Sod 3.375 gm/ Dextrose IVPB 100 mls/hr Q8H-IV BASIA Administration Protocol Ondansetron HCl 4 mg 12/17/19 07:00 Zofran Injection IVPUSH Q6H PRN NAUSEA Quetiapine Fumarate 25 mg 12/18/19 22:00 12/20/19 21:32 Seroquel - PO 25 mg HS BASIA Administration ASSESSMENT/PLAN: Problem List - Problems (1) Abscess of sigmoid colon Assessment/Plan: abdominal pain resolved patient is afebrile, vitals stable, no leukocytosis tolerating advancement of diet regular diet ordered for lunch and he denies any abdominal pain plan is to rescan tomorrow continue IV per ID Code(s): K63.0 - ABSCESS OF INTESTINE (2) Prophylactic measure Assessment/Plan: fen tolerating diet monitor morning labs full code Code(s): Z29.9 - ENCOUNTER FOR PROPHYLACTIC MEASURES, UNSPECIFIED (3) DVT prophylaxis Assessment/Plan: SCDs Code(s): Z29.9 - ENCOUNTER FOR PROPHYLACTIC MEASURES, UNSPECIFIED Visit type - Emergency Visit Emergency Visit: Yes ED Registration Date: 12/17/19 Care time: The patient presented to the Emergency Department on the above date and was hospitalized for further evaluation of their emergent condition. - New Patient This patient is new to me today: Yes Date on this admission: 12/21/19 - Critical Care Critical Care patient: No - Discharge Referral Referred to [facility] No
--- NOTE | 2019-12-21 13:17 | PN ---
Progress Note, Physician History of Present Illness: improving tolerated diet - Current Medication List Current Medications: Active Medications Acetaminophen (Tylenol -) 1,000 mg PO Q8H PRN PRN Reason: PAIN LEVEL 4 - 6 Amoxicillin/Clavulanate Potassium (Augmentin - 875mg Tablet) 1 tab PO BID@0800,1730 [facility] Sodium Chloride (Normal Saline -) 1,000 mls @ 75 mls/hr IV ASDIR [facility] Last Admin: 12/21/19 10:43 Dose: Not Given Documented by: Ondansetron HCl (Zofran Injection) 4 mg IVPUSH Q6H PRN PRN Reason: NAUSEA Quetiapine Fumarate (Seroquel -) 25 mg PO HS [facility] Last Admin: 12/20/19 21:32 Dose: 25 mg Documented by: - Objective Vital Signs: Vital Signs Temperature 97.6 F 12/21/19 06:00 Pulse Rate 71 12/21/19 06:00 Respiratory Rate 18 12/21/19 06:00 Blood Pressure 113/77 12/21/19 06:00 O2 Sat by Pulse Oximetry (%) 100 12/21/19 06:00 Constitutional: Yes: No Distress, Calm Cardiovascular: Yes: S1, S2 Respiratory: Yes: Regular, CTA Bilaterally Gastrointestinal: Yes: Normal Bowel Sounds, Soft Musculoskeletal: Yes: WNL Extremities: Yes: WNL Neurological: Yes: Alert, Oriented Psychiatric: Yes: Alert, Oriented Labs: CBC, BMP 12/21/19 07:25 12/21/19 07:25 INR, PTT INR 1.26 (0.83-1.09) H 12/18/19 12:35 Assessment/Plan Problem List - Problems (1) Abscess of sigmoid colon Code(s): K63.0 - ABSCESS OF INTESTINE (2) Diverticulitis Code(s): K57.92 - DVTRCLI OF INTEST, PART UNSP, W/O PERF OR ABSCESS W/O BLEED (3) Pericolonic abscess Code(s): K63.0 - ABSCESS OF INTESTINE Assessment/Plan Acute sigmoid diverticulitis with abscess changed to oral abx
[2019-12-21] MEDS ORDERED: PT OWN MED DRAWER 7, Y5N ONE (15:24)
[2019-12-21] MEDS: metroNIDAZOLE 500 MG TABLET PO SCH ×2 (15:25→21:13)
[2019-12-21] MEDS: AMOX TR/POT CLAV 875MG/125MG TABLETS (FP) PO SCH (18:32)
[2019-12-21] MEDS: QUEtiapine FUMARATE 25 MG TABLET PO SCH (21:13)
[2019-12-22] MEDS ORDERED: PT OWN MED DRAWER 7, Y5N ONE ×4 (06:19→21:06)
[2019-12-22] MEDS: metroNIDAZOLE 500 MG TABLET PO SCH ×3 (10:20→21:13)
[2019-12-22] MEDS: AMOX TR/POT CLAV 875MG/125MG TABLETS (FP) PO SCH ×2 (10:20→17:03)
[2019-12-22] MEDS: SODIUM CHLORIDE 1,000 ML IV SCH (10:21)
--- NOTE | 2019-12-22 12:37 | PN ---
Progress Note, Physician History of Present Illness: stable no complaints tolerating diet - Current Medication List Current Medications: Active Medications Acetaminophen (Tylenol -) 1,000 mg PO Q8H PRN PRN Reason: PAIN LEVEL 4 - 6 Amoxicillin/Clavulanate Potassium (Augmentin - 875mg Tablet) 1 tab PO BID@0800,1730 [facility] Last Admin: 12/22/19 10:20 Dose: 1 tab Documented by: Sodium Chloride (Normal Saline -) 1,000 mls @ 75 mls/hr IV ASDIR [facility] Last Admin: 12/22/19 10:21 Dose: Not Given Documented by: Metronidazole (Flagyl -) 500 mg PO TID [facility] Last Admin: 12/22/19 10:20 Dose: 500 mg Documented by: Ondansetron HCl (Zofran Injection) 4 mg IVPUSH Q6H PRN PRN Reason: NAUSEA Quetiapine Fumarate (Seroquel -) 25 mg PO HS [facility] Last Admin: 12/21/19 21:13 Dose: 25 mg Documented by: - Objective Vital Signs: Vital Signs Temperature 98 F 12/22/19 10:24 Pulse Rate 70 12/22/19 10:24 Respiratory Rate 18 12/22/19 10:24 Blood Pressure 122/69 12/22/19 10:24 O2 Sat by Pulse Oximetry (%) 99 12/22/19 10:24 Constitutional: Yes: No Distress, Calm Cardiovascular: Yes: S1, S2 Respiratory: Yes: Regular, CTA Bilaterally Gastrointestinal: Yes: Normal Bowel Sounds, Soft Musculoskeletal: Yes: WNL Extremities: Yes: WNL Neurological: Yes: Alert, Oriented Psychiatric: Yes: Alert, Oriented Labs: CBC, BMP 12/21/19 07:25 12/21/19 07:25 INR, PTT INR 1.26 (0.83-1.09) H 12/18/19 12:35 Assessment/Plan Problem List - Problems (1) Abscess of sigmoid colon Code(s): K63.0 - ABSCESS OF INTESTINE (2) Diverticulitis Code(s): K57.92 - DVTRCLI OF INTEST, PART UNSP, W/O PERF OR ABSCESS W/O BLEED (3) Pericolonic abscess Code(s): K63.0 - ABSCESS OF INTESTINE Assessment/Plan Acute sigmoid diverticulitis with abscess continue oral abx
--- NOTE | 2019-12-22 14:19 | PN ---
Progress Note, Physician History of Present Illness: HAD DISCOMFORT IN [place] AFTER FOOD NOW OK - Current Medication List Current Medications: Active Medications Acetaminophen (Tylenol -) 1,000 mg PO Q8H PRN PRN Reason: PAIN LEVEL 4 - 6 Amoxicillin/Clavulanate Potassium (Augmentin - 875mg Tablet) 1 tab PO BID@0800,1730 [facility] Last Admin: 12/22/19 10:20 Dose: 1 tab Documented by: Sodium Chloride (Normal Saline -) 1,000 mls @ 75 mls/hr IV ASDIR [facility] Last Admin: 12/22/19 10:21 Dose: Not Given Documented by: Metronidazole (Flagyl -) 500 mg PO TID [facility] Last Admin: 12/22/19 10:20 Dose: 500 mg Documented by: Ondansetron HCl (Zofran Injection) 4 mg IVPUSH Q6H PRN PRN Reason: NAUSEA Quetiapine Fumarate (Seroquel -) 25 mg PO HS [facility] Last Admin: 12/21/19 21:13 Dose: 25 mg Documented by: - Objective Vital Signs: Vital Signs Temperature 98 F 12/22/19 10:24 Pulse Rate 70 12/22/19 10:24 Respiratory Rate 18 12/22/19 10:24 Blood Pressure 122/69 12/22/19 10:24 O2 Sat by Pulse Oximetry (%) 99 12/22/19 10:24 Constitutional: Yes: No Distress HENT: Yes: Atraumatic Neck: Yes: Supple Cardiovascular: Yes: Regular Rate and Rhythm Respiratory: Yes: CTA Bilaterally Gastrointestinal: Yes: Normal Bowel Sounds Extremities: Yes: WNL Neurological: Yes: Alert, Oriented Labs: CBC, BMP 12/21/19 07:25 12/21/19 07:25 INR, PTT INR 1.26 (0.83-1.09) H 12/18/19 12:35 Problem List - Problems (1) Abscess of sigmoid colon Assessment/Plan: REPEAT CT SCAN TODAY HAD LUNCH, BETTER NOW Code(s): K63.0 - ABSCESS OF INTESTINE (2) COVID-19 virus not detected Code(s): Z03.818 - ENCNTR FOR OBS FOR SUSP EXPSR TO OTH BIOLG AGENTS RULED OUT (3) Marijuana smoker Code(s): F12.90 - CANNABIS USE, UNSPECIFIED, UNCOMPLICATED (4) Diverticulitis of large intestine with abscess without bleeding Code(s): K57.20 - DVTRCLI OF LG INT W PERFORATION AND ABSCESS W/O BLEEDING Assessment/Plan COVERING FOR DR LEDESMA TODAY
--- NOTE | 2019-12-22 15:56 | PN ---
Progress Note (short form) - Note Progress Note: Surgery Pt seen and examined on Am rounds. He Reports he is feeling well. He denies any pain, nausea or vomiting. Has been oob in the room without issue. He is tolerating his diet and moving his bowels and Voiding without issue. He Denies cp/sob, n/v. Tolerating clears. Vital Signs Temp 97.8 F 12/22/19 14:00 Pulse 72 12/22/19 14:00 Resp 18 12/22/19 14:00 BP 127/81 12/22/19 14:00 Pulse Ox 100 12/22/19 14:00 Intake & Output 12/21/19 12/22/19 12/22/19 23:59 11:59 23:59 Intake Total 1870 250 Balance 1870 250 Intake: Oral 1630 250 Oral Supplement 240 Other: Voiding Method Toilet Toilet Toilet # Unmeasured Voids Void 3 1 Bowel Movement Yes No # Bowel Movements 1 PE: Gen: awake, alert, nad Resp: unlabored on RA Abdo: soft, nt/nd, +bowel sounds in all four quadrants <Rocio Jasso - Last Filed: 12/22/19 16:46> - Note Progress Note: Attending Surgeon: I personally saw and examined the patient. My examination reveals a patient with acute diverticulitis. I discussed the case with the surgical PA and agree with their findings and plan of care with any exceptions as noted. ~ Ernesto Prabhakar MD, FACS <Ernesto Prabhakar - Last Filed: 12/24/19 10:28> Problem List - Problems (1) Abscess of sigmoid colon Assessment/Plan: A/P: 39 y/o male w/ no significant PMHx a/w a three day history of abdominal pain, found to have diverticulitis with abscess. Overall improving symptomatically. afebrile, vss no leukocytosis pain improved tolerating regular -serial abdo exams -rescan today (ordered) -continue IV abx per ID d/w attending Dr Prabhakar Code(s): K63.0 - ABSCESS OF INTESTINE (2) Diverticulitis Code(s): K57.92 - DVTRCLI OF INTEST, PART UNSP, W/O PERF OR ABSCESS W/O BLEED <Rocio Jasso - Last Filed: 12/22/19 16:46>
[2019-12-22 16:50] LABS: BASO % 0.2 % (0-2.0); EOS % 1.1 % (0-4.5); HEMATOCRIT 48.1 % (35.4-49); HEMOGLOBIN 16.2 GM/dL (11.7-16.9); LYMPH % 23.7 % (8-40); MCH 29.7 pg (25.7-33.7); MCHC 33.6 g/dl (32.0-35.9); MEAN CELL VOLUME 88.2 fl (80-96); MEAN PLT VOLUME 6.9 fl (7.5-11.1); MONO % 6.3 % (3.8-10.2); NEUT % 68.7 % (42.8-82.8); PLATELET COUNT 453 K/MM3 (134-434); RBC 5.45 M/mm3 (4.00-5.60); RDW 12.6 % (11.9-15.9); WHITE BLOOD COUNT 9.2 K/mm3 (4.0-10.0)
[2019-12-22 17:25] LABS: ALBUMIN 3.7 g/dl (3.4-5.0); BILIRUBIN,TOTAL 0.3 mg/dL (0.2-1); CALCIUM 9.5 mg/dL (8.5-10.1); MAGNESIUM 2.1 mg/dL (1.8-2.4); POTASSIUM 3.9 mmol/L (3.5-5.1); TOT PROT 8.2 g/dl (6.4-8.2)
[2019-12-22] MEDS: QUEtiapine FUMARATE 25 MG TABLET PO SCH (21:13)
[2019-12-23] MEDS ORDERED: PT OWN MED DRAWER 7, Y5N ONE ×2 (06:24→13:45)
[2019-12-23] MEDS: metroNIDAZOLE 500 MG TABLET PO SCH ×2 (06:27→14:00)
[2019-12-23] MEDS: AMOX TR/POT CLAV 875MG/125MG TABLETS (FP) PO SCH (08:52)
[2019-12-23 10:25] VITALS: TEMP 98.3
--- NOTE | 2019-12-23 11:45 | PN ---
Progress Note (short form) - Note Progress Note: Surgery Pt seen and examined on Am rounds. He Reports he is feeling well and although he experiences some nausea during the afternoon last night, he is still tolerating his regular diet and denies any pain, nausea or vomiting. Has been oob in the room without issue. He is tolerating his diet and moving his bowels and Voiding without issue. He Denies cp/sob, n/v. Tolerating clears. Vital Signs Temp 98.3 F 12/23/19 10:14 Pulse 70 12/23/19 10:14 Resp 16 12/23/19 10:14 BP 135/70 12/23/19 10:14 Pulse Ox 98 12/23/19 10:14 Intake & Output 12/22/19 12/22/19 12/23/19 11:59 23:59 11:59 Intake Total 250 1150 500 Balance 250 1150 500 Intake: IV 0 Normal Saline - 1,000 ml 0 @ 75 mls/hr IV ASDIR BASIA Rx#:[id number] IVPB 0 0 Oral 250 1150 500 Other: Voiding Method Toilet Toilet Toilet # Unmeasured Voids Void 1 3 2 Bowel Movement No Yes No # Bowel Movements 1 CBC, BMP 12/22/19 16:00 12/22/19 16:00 PE: Gen: awake, alert, nad Resp: unlabored on RA Abdo: soft, nt/nd, +bowel sounds in all four quadrants CT Abdomen and pelvis with contrast: Interval significant improvement of previously described colitis/ diverticulitis with residual moderate thickening of the proximal sigmoid colon and mild stranding of the surrounding fat as well as essentially almost complete clearing of previously described adjacent collection. No gross extraluminal air is identified. Colonoscopy suggested to rule out any underlying pathology. <Rocio Jasso - Last Filed: 12/23/19 11:46> - Note Progress Note: Attending Surgeon: I personally saw and examined the patient. My examination reveals a patient with diverticulitis. I discussed the case with the surgical PA and agree with their findings and plan of care with any exceptions as noted. ~ Ernesto Prabhakar MD, FACS <Ernesto Prabhakar - Last Filed: 12/24/19 10:25> Problem List - Problems (1) Abscess of sigmoid colon Assessment/Plan: A/P: 39 y/o male w/ no significant PMHx a/w a three day history of abdominal pain, found to have diverticulitis with abscess. Repeat CT scan shows significant improvement and patient continues to improve symptomatically. No indication for surgical intervention. afebrile, vss no leukocytosis pain improved tolerating regular -Cleared by surgery for d/c home -F/U with GI for colonoscopy -continue po abx per ID -re-consult surgery team PRN Evaluation and plan discussed with attending Dr Prabhakar Problems reviewed: Yes Code(s): K63.0 - ABSCESS OF INTESTINE (2) Diverticulitis Code(s): K57.92 - DVTRCLI OF INTEST, PART UNSP, W/O PERF OR ABSCESS W/O BLEED <Rocio Jasso - Last Filed: 12/23/19 11:46>
--- NOTE | 2019-12-23 12:16 | PN ---
Progress Note, Physician History of Present Illness: patient tolerating regular diet had some nausea - Current Medication List Current Medications: Active Medications Acetaminophen (Tylenol -) 1,000 mg PO Q8H PRN PRN Reason: PAIN LEVEL 4 - 6 Amoxicillin/Clavulanate Potassium (Augmentin - 875mg Tablet) 1 tab PO BID@0800,1730 [facility] Last Admin: 12/23/19 08:52 Dose: 1 tab Documented by: Sodium Chloride (Normal Saline -) 1,000 mls @ 75 mls/hr IV ASDIR [facility] Last Admin: 12/22/19 10:21 Dose: Not Given Documented by: Metronidazole (Flagyl -) 500 mg PO TID [facility] Last Admin: 12/23/19 06:27 Dose: 500 mg Documented by: Ondansetron HCl (Zofran Injection) 4 mg IVPUSH Q6H PRN PRN Reason: NAUSEA Quetiapine Fumarate (Seroquel -) 25 mg PO HS [facility] Last Admin: 12/22/19 21:13 Dose: 25 mg Documented by: - Objective Vital Signs: Vital Signs Temperature 98.3 F 12/23/19 10:14 Pulse Rate 70 12/23/19 10:14 Respiratory Rate 16 12/23/19 10:14 Blood Pressure 135/70 12/23/19 10:14 O2 Sat by Pulse Oximetry (%) 98 12/23/19 10:14 Constitutional: Yes: No Distress, Calm Cardiovascular: Yes: S1, S2 Respiratory: Yes: Regular, CTA Bilaterally Gastrointestinal: Yes: Normal Bowel Sounds, Soft Musculoskeletal: Yes: WNL Extremities: Yes: WNL Neurological: Yes: Alert, Oriented Psychiatric: Yes: Alert, Oriented Labs: CBC, BMP 12/22/19 16:00 12/22/19 16:00 INR, PTT INR 1.26 (0.83-1.09) H 12/18/19 12:35 Assessment/Plan Problem List - Problems (1) Abscess of sigmoid colon Code(s): K63.0 - ABSCESS OF INTESTINE (2) Diverticulitis Code(s): K57.92 - DVTRCLI OF INTEST, PART UNSP, W/O PERF OR ABSCESS W/O BLEED (3) Pericolonic abscess Code(s): K63.0 - ABSCESS OF INTESTINE Assessment/Plan Acute sigmoid diverticulitis with abscess continue oral abx
[2019-12-23 15:40] VITALS: BP 138/78; PULSE 78
== END 2019-12-23 15:48 | disposition home or self-care (01) | DRG 244 ==
LOC: JER 01:07 → JERBED 07:20 → J5S 10:20
PROVIDERS: ADMIT Student in an Organized Health Care Education/Training Program; ATTEND Internal Medicine
DX: K57.20 Diverticulitis of large intestine with perforation and abscess without bleeding (principal); K59.00 Constipation, unspecified; K29.60 Other gastritis without bleeding; R00.0 Tachycardia, unspecified; F12.90 Cannabis use, unspecified, uncomplicated; Z20.828 Contact with and (suspected) exposure to other viral communicable diseases
CPT/HCPCS: 36415; 74177-TC; 80053; 80307; 81003; 83735; 84100; 85025; 85610; 85730; 86850; 86900; 86901; 93005; 93010; 99285-25; J0131; Q9967; U0003

== ENCOUNTER 2022-03-27 21:38 | Emergency (ER) | payer OTHER ==
[2022-03-27 22:30] VITALS: BP 145/72; PULSE 100; RESP 20; TEMP 98.3; BMI 21.4
[2022-03-27] MEDS ORDERED: ACETAMINOPHEN 1000 MG/100 ML BAG IVPB ONE (23:26)
[2022-03-28] MEDS ORDERED: ACETAMINOPHEN 325 MG TABLET (FP) PO ONE (00:02)
[2022-03-28] MEDS ORDERED: ACETAMINOPHEN 325 MG TABLET (FP) ONE (00:03)
== END 2022-03-28 02:57 | disposition home or self-care (01) ==
LOC: JER 21:38
DX: S42.022A Displaced fracture of shaft of left clavicle, initial encounter for closed fracture (principal); W19.XXXA Unspecified fall, initial encounter
CPT/HCPCS: 70450-TC; 71045-TC-FY; 72125-TC; 73000-TC-LT-FY; 73030-TC-LT-FY; 99284-25

== ENCOUNTER 2022-11-04 01:07 | Emergency (ER) | payer OTHER ==
[2022-11-04 01:18] VITALS: BP 148/80; RESP 20; TEMP 98.3; BMI 22.1
[2022-11-04 01:28] VITALS: PULSE 107
[2022-11-04] MEDS ORDERED: TETANUS AND DIPHTHERIA TOXOID 0.5 ML DISP.SYRIN IM ONE (02:04)
[2022-11-04] MEDS ORDERED: DIPHTH,PERTUSS(ACELL),TET 0.5 ML DISP.SYRIN IM ONE ×2 (02:06→02:07)
== END 2022-11-04 02:11 | disposition home or self-care (01) ==
LOC: JER 01:07
PROC: 3E0234Z Introduction of Serum, Toxoid and Vaccine into Muscle, Percutaneous Approach (ICD-10-PCS; principal; 2022-11-04)
DX: S61.216A Laceration without foreign body of right little finger without damage to nail, initial encounter (principal); W26.8XXA Contact with other sharp object(s), not elsewhere classified, initial encounter; Y99.0 Civilian activity done for income or pay
CPT/HCPCS: 90715; 99283-25